=== PATIENT | male | born 1975 | race Hispanic/Latino ===

== ENCOUNTER 2019-11-27 14:04 | Inpatient (IN) | payer BC, OTHER ==
[~2019-11-27] VITALS: Ht 172.7 cm; Wt 89.8 kg
[~2019-11-27 14:04] MED LIST: ASPIRIN ENTERI325 MG PO; FLAGYL250 MG PO; LEVAQUIN500 MG PO; METFORMIN HCL500 MG PO; PANTOPRAZOLE SO40 MG PO; PRAVASTATIN SOD20 MG PO; ZOFRAN4 MG/5 ML PO
--- OUTSIDE RECORDS SUMMARY | 2019-11-27 14:10 | XMS REPORT ---
Author Author [facility] Address [address] [place] [address] Phone Unavailable Care Team Providers Care Pharmacy Laboratory Technician Name Role Phone Unavailable Unavailable Problems This patient has no known problems. Allergies, Adverse Reactions, Alerts This patient has no known allergies or adverse reactions. Medications This patient has no known medications. Procedures This patient has no known procedures. Encounters Start Date/Time End Date/Time Encounter Type Admission Type [facility] Care Department Encounter ID Source 2019-11-23 23:41:00 2019-11-23 23:41:00 Emergency E MHNE [facility]NE [id number] [facility]NE Results This patient has no known results.
--- NOTE | 2019-11-27 14:29 | NUR ---
no answer. not in lobby
[2019-11-27] MEDS ORDERED: AZITHROMYCIN 500MG/NS 250 ML 250 ML IV ONE (15:30)
--- NOTE | 2019-11-27 15:34 | Emergency Department Note ---
History of Present Illnes History of Present Illness Chief Complaint: General Medicine Complaints History of Present Illness This is a 44 year old male . Chief Complaint Comment sob. states covid testing friday at [facility], thinks it was negative, dx with pneumonia. aaox4. ambulatory. no acute distress noted. 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 Any updates have been documented here. (GISEL NARAYAN NP) Past Medical History Recent Fever: No Clinical Suspicion of Infectio: No New/Unexplained Change in Ment: No Other Medical History: DIVERTICULOSIS DIVERTICULITIS pnuemonia Past Surgical History: Colon Resection Other Surgery: Some of Colon removed for Diverticulitis. (GISEL NARAYAN NP) Social History Smoking Cessation: Never Smoker Alcohol Use: None Any Illegal Drug Use: No TB Exposure/Symptoms: No Physically hurt or threatened: No (GISEL NARAYAN NP) Family History Family history of heart diseas: No (GISEL NARAYAN NP) Other Last Tetanus: [place] Any Pre-Existing Lines (PICC,: No (GISEL NARAYAN NP) Review of Systems Review of Systems Constitutional: chills, fever, malaise, weakness Cardiovascular: chest pain Respiratory: cough, pain with cough, dyspnea, dyspnea on exertion Review of other systems All other systems reviewed and negative. (GISEL NARAYAN NP) Physical Exam Related Data Allergies: Coded Allergies: No Known Allergies (Unverified , 04/20/15) Triage Vital Signs Vital Signs Date Time Temp Pulse Resp B/P (MAP) Pulse Ox O2 Delivery O2 Flow Rate FiO2 11/27/19 14:14 98.4 73 16 122/87 97 Vital signs reviewed: Yes (GISEL NARAYAN NP) Physical Exam CONSTITUTIONAL Constitutional: well-developed, well-nourished HENT HENT: normocephalic, atraumatic, oropharynx clear/moist, nose normal HENT L/R: left ext ear normal, right ext ear normal EYES Eyes: PERRL, conjunctivae normal NECK Neck: ROM normal PULMONARY Pulmonary: effort normal, breath sounds normal; respiratory distress CARDIOVASCULAR Cardiovascular: regular rhythm, heart sounds normal, capillary refill normal, normal rate, other (c/o cp ); LLE edema, RLE edema GASTROINTESTINAL Abdominal: soft, nontender, bowel sounds normal GENITOURINARY Genitourinary: exam deferred SKIN Skin: warm, dry MUSCULOSKELETAL Musculoskeletal: ROM normal NEUROLOGICAL Neurological: alert, oriented x 3, no gross motor or sensory deficits PSYCHOLOGICAL Psychological: mood/affect normal, judgement normal (GISEL NARAYAN NP) Results Laboratory Laboratory Laboratory Tests Test 11/27/19 16:28 11/27/19 16:08 11/27/19 15:00 White Blood Count 4.19 x10e3/uL (4.8-10.8) Red Blood Count 5.31 x10e6/uL (4.3-5.7) Hemoglobin 16.2 g/dL (14.0-18.0) Hematocrit 48.7 % (38.2-49.6) Mean Corpuscular Volume 91.7 fL (81-99) Mean Corpuscular Hemoglobin 30.5 pg (28-32) Mean Corpuscular Hemoglobin Concent 33.3 g/dL (31-35) Red Cell Distribution Width 13.9 % (11.7-14.4) Platelet Count 162 x10e3/uL (140-360) Neutrophils (%) (Auto) 63.3 % (38.7-80.0) Lymphocytes (%) (Auto) 26.0 % (18.0-39.1) Monocytes (%) (Auto) 10.3 % (4.4-11.3) Eosinophils (%) (Auto) 0.0 % (0.0-6.0) Basophils (%) (Auto) 0.2 % (0.0-1.0) Neutrophils # (Auto) 2.7 (2.1-6.9) Lymphocytes # (Auto) 1.1 (1.0-3.2) Monocytes # (Auto) 0.4 (0.2-0.8) Eosinophils # (Auto) 0.0 (0.0-0.4) Basophils # (Auto) 0.0 (0.0-0.1) Absolute Immature Granulocyte (auto 0.01 x10e3/uL (0-0.1) Sodium Level 139 mmol/L (136-145) Potassium Level 4.1 mmol/L (3.5-5.1) Chloride Level 102 mmol/L (98-107) Carbon Dioxide Level 24 mmol/L (22-29) Anion Gap 17.1 mmol/L (8-16) Blood Urea Nitrogen 12 mg/dL (7-26) Creatinine 0.90 mg/dL (0.72-1.25) Estimat Glomerular Filtration Rate > 60 ML/MIN (60-) BUN/Creatinine Ratio 13 (6-25) Glucose Level 185 mg/dL (74-118) Lactic Acid Level 1.4 mmol/L (0.5-2.0) Calcium Level 9.8 mg/dL (8.4-10.2) Total Bilirubin 0.4 mg/dL (0.2-1.2) Aspartate Amino Transf (AST/SGOT) 44 IU/L (5-34) Alanine Aminotransferase (ALT/SGPT) 68 IU/L (0-55) Alkaline Phosphatase 78 IU/L (40-150) Creatine Kinase 52 IU/L (30-200) Creatine Kinase MB 0.40 ng/mL (0-5.0) Troponin I 0.008 ng/mL (0-0.300) B-Type Natriuretic Peptide < 10.0 pg/mL (0-100) Total Protein 7.9 g/dL (6.5-8.1) Albumin 3.9 g/dL (3.5-5.0) Globulin 4.0 g/dL (2.3-3.5) Albumin/Globulin Ratio 1.0 (0.8-2.0) Influenza Virus Types A,B Antigen Negative (NEGATIVE) Group A Streptococcus Screen Negative (NEGATIVE) Urine Color Yellow (YELLOW) Urine Clarity Clear (CLEAR) Urine pH 6 (5 - 7) Urine Specific [place] >=1.030 (1.010-1.025) Urine Protein 1+ (NEGATIVE) Urine Glucose (UA) 2+ (NEGATIVE) Urine Ketones 2+ (NEGATIVE) Urine Blood Trace (NEGATIVE) Urine Nitrite Negative (NEGATIVE) Urine Bilirubin Negative (NEGATIVE) Urine Urobilinogen 0.2 mg/dL (0.2 - 1) Urine Leukocyte Esterase Negative (NEGATIVE) Urine RBC 6-10 /HPF (0-5) Urine WBC 6-10 /HPF (0-5) Urine Epithelial Cells Few /LPF (NONE) Urine Bacteria Rare /HPF (NONE) Lab results reviewed: Yes (GISEL NARAYAN NP) Procedures 12 Lead ECG Interpretation Video Game Repair Technician: Interpreted by ED physician (tay) Date: November 27, 2019 Time: 19:07 Prior LOG CHAIN WORKER tracings: reviewed Rhythm: sinus rhythm Rate: normal BPM: 97 QRS axis: left (GISEL NARAYAN NP) Critical Care Time Subsequent provider I assumed direction of critical care for this patient from another provider of my specialty. (GISEL NARAYAN NP) Assessment & Plan Reassessment Reassessment time: 15:31 Reassessment 44y m presented to ed c/o cp sob cough x 5 days - seen at [facility] 3 days ago neg covid - Dr Montes in eval pt status - lab ekg ct chest - medicated w/ azithromax rocephin blood cultures lactic ordered in triage pt medicated w/ rocephin azithromax no bacterial source for pneumonia found Dr Montes discussed pt presentation plan of care w/ Dr Guerra (GISEL NARAYAN NP) Assessment & Plan Final Impression: (1) DYSPNEA, UNSPECIFIED (2) PNEUMONIA, UNSPECIFIED ORGANISM Assessment & Plan discussed lab ct results plan of care and plan for admit Dr Guerra spoke w/ Dr Menendez will admit (GISEL NARAYAN NP) Assessment & Plan 5 all right the ED with continued complaints of cough and shortness of breath. Patient febrile ER, CT scan ordered by Dr. Montes given concerns of possible pulmonary embolus. CT concerning for viral pneumonia. There is a high suspicion of [place] 19, given leukopenia and CT findings of multilobar bilateral pneumonia. Patient was admitted, covered swabs sent, no concerns of bacterial source of infection at time of admission. Patient presented during the COVID-19 virus pandemic and has a clinical picture consistent with a COVID-19 source for sepsis. Thus, patient was treated for suspected viral sepsis rather than bacterial sepsis. Given the potential for ARDS and present suggestions of early data from COVID treatment in other areas, fluids were given judiciously and the bacterial sepsis guidelines were deviated from. For consideration of other sources, blood cultures, antibiotics and lactic acid will potentially be ordered. Will continue to monitor blood pressure and ad just fluid resuscitation accordingly." (JOSE R GUERRA DO) Depart Disposition: ADMITTED Last Vital Signs Date Time Temp Pulse Resp B/P (MAP) Pulse Ox O2 Delivery O2 Flow Rate FiO2 11/27/19 14:14 98.4 73 16 122/87 97 (GISEL NARAYAN NP) Home Meds Active Scripts Ondansetron Hcl (ZOFRAN) 4 Mg/5 Ml Solution, 4 MG PO Q4HR PRN for NAUSEA, #30 1 Refill Prov:NEERU DOWLING MD 11/14/15 Aspirin (ASPIRIN ENTERIC COATED) 325 Mg Tabec, 81 MG PO DAILY, #30 TAB 2 Refills Prov:NEERU DOWLING MD 11/14/15 Pravastatin Sodium (PRAVASTATIN SODIUM) 20 Mg Tablet, 20 MG PO HS, #30 2 Refills Prov:NEERU DOWLING MD 11/14/15 Metformin Hcl (METFORMIN HCL) 500 Mg Tablet, 500 MG PO BID, #60 TAB 2 Refills Prov:NEERU DOWLING MD 11/14/15 Reported Medications Gabapentin (GABAPENTIN) 300 Mg Capsule, 300 MG PO BID, #60 CAP 11/27/19 Glimepiride (GLIMEPIRIDE) 2 Mg Tablet, 4 MG PO DAILY, TAB 11/27/19 Metformin Hcl (METFORMIN HCL) 500 Mg Tablet, 1000 MG PO BID, #60 TAB 11/27/19 GISEL NARAYAN NP November 27, 2019 15:34 JOSE R GUERRA DO November 27, 2019 22:55
[2019-11-27 16:23] LABS: CLARITY,URINE CLEAR (CLEAR); COLOR,URINE YELLOW (YELLOW)
[2019-11-27 16:24] LABS: BILIRUBIN,URINE NEGATIVE (NEGATIVE); KETONES,URINE 2+ (NEGATIVE); LEUKOCYTE ESTERASE ,URINE NEGATIVE (NEGATIVE); NITRITE,URINE NEGATIVE (NEGATIVE); PROTEIN,URINE DIPSTICK 1+ (NEGATIVE); URINE UROBILINOGEN 0.2 mg/dL (0.2 - 1)
[2019-11-27 16:29] LABS: BACTERIA,URINE RARE /HPF; EPITHELIAL CELLS,URINE FEW /LPF
[2019-11-27 16:53] LABS: BASOPHILS % 0.2 % (0.0-1.0); HEMATOCRIT 48.7 % (38.2-49.6); HEMOGLOBIN 16.2 g/dL (14.0-18.0); LYMPHOCYTES # (AUTO) 1.1 (1.0-3.2); MEAN CORPUSCULAR HEMOGLOBIN 30.5 pg (28-32); MEAN CORPUSCULAR HGB CONC 33.3 g/dL (31-35); MEAN CORPUSCULAR VOLUME 91.7 fL (81-99); MONOCYTES # (AUTO) 0.4 (0.2-0.8); MONOCYTES % 10.3 % (4.4-11.3); NEUTROPHILS # (AUTO) 2.7 (2.1-6.9); NEUTROPHILS % 63.3 % (38.7-80.0); PLATELET COUNT 162 x10e3/uL (140-360); RED BLOOD COUNT 5.31 x10e6/uL (4.3-5.7); RED CELL DISTRIBUTION WIDTH 13.9 % (11.7-14.4)
[2019-11-27] MEDS ORDERED: CEFTRIAXONE SOD 1 GM VIAL IV NR (17:00)
[2019-11-27] MEDS ORDERED: SODIUM CHLORIDE 0.9% 50ML 50 ML ONE ×2 (17:12→19:31)
[2019-11-27 17:25] LABS: INFLUENZAE A&B ANTIGEN (RAPID) NEGATIVE (NEGATIVE); STREPTOCOCCUS GRP A ANTIGEN NEGATIVE (NEGATIVE)
[2019-11-27 17:28] LABS: B-TYPE NATRIURETIC PEPTIDE2 < 10.0 pg/mL (0-100)
[2019-11-27 17:56] LABS: ALANINE AMINOTRANSFERASE 68 IU/L (0-55); ALBUMIN 3.9 g/dL (3.5-5.0); ALKALINE PHOSPHATASE 78 IU/L (40-150); ANION GAP 17.1 mmol/L (8-16); BLOOD UREA NITROGEN 12 mg/dL (7-26); BUN/CREATININE RATIO 13 (6-25); CALCIUM 9.8 mg/dL (8.4-10.2); CARBON DIOXIDE 24 mmol/L (22-29); CHLORIDE 102 mmol/L (98-107); CREATINE KINASE 52 IU/L (30-200); EST GLOMERULAR FILTRATION RATE > 60 ML/MIN (60-); GLUCOSE 185 mg/dL (74-118); POTASSIUM 4.1 mmol/L (3.5-5.1); SODIUM 139 mmol/L (136-145)
[2019-11-27] MEDS ORDERED: KETOROLAC TROMETHAMINE 30 MG/ML VIAL IV NR (18:45)
[2019-11-27] MEDS ORDERED: IOPAMIDOL 370 MG/ML 200 ML INFUS..BTL INJ ONE (19:31)
--- NOTE | 2019-11-27 20:17 | Diagnostic Imaging Report ---
EXAM: CT Chest WITH contrast (PE protocol) 11/27/2019 7:33 PM INDICATION: Short of breath, fever COMPARISON: None TECHNIQUE: Chest was scanned utilizing a multidetector helical scanner from the lung apex through the level of the diaphragm after administration of IV contrast. Thin section reconstructions were obtained with special concentration on the pulmonary arteries. Coronal and sagittal reformations were obtained. Pulmonary embolism protocol was performed. IV CONTRAST: 100 mL of Isovue 370 COMPLICATIONS: None RADIATION DOSE: Total DLP: 492 mGy*cm Estimated effective dose: (DLP x 0.014 x size factor) mSv CTDIvol has been reviewed. It is below the limits set by the Radiation Protocol Committee (RPC). Dose modulation, iterative reconstruction, and/or weight based adjustment of the mA/kV was utilized to reduce the radiation dose to as low as reasonably achievable. FINDINGS: LINES/ TUBES: None. LUNGS AND AIRWAYS: No pulmonary arterial filling defect. Groundglass and consolidative opacity in the right lower lobe, scattered focal groundglass opacities in the bilateral upper and left lower lobes. Airways are normal. PLEURA: The pleural spaces are clear. HEART AND MEDIASTINUM: The thyroid gland is normal. No mediastinal, hilar or axillary lymphadenopathy. The heart is normal in size. There is no pericardial effusion. UPPER ABDOMEN: Hepatomegaly with hepatic steatosis. Unremarkable. BONES: The visualized bony thorax is within normal limits. SOFT TISSUES: Unremarkable. IMPRESSION: Multifocal pneumonia, mostly in the right lower lobe. Correlate for viral pneumonia. Hepatomegaly with hepatic steatosis. Signed by: Tom Antony DO on 11/27/2019 8:14 PM
[2019-11-27] MEDS ORDERED: GLIMEPIRIDE2 MG PO (21:48)
[2019-11-27] MEDS ORDERED: METFORMIN HCL500 MG PO (21:48)
[2019-11-27] MEDS ORDERED: GABAPENTIN300 MG PO (21:48)
--- OUTSIDE RECORDS SUMMARY | 2019-11-27 21:49 | XMS REPORT ---
Author Author [facility] t Organization [facility] Address [address] [place] [address] Phone Unavailable Care Team Providers Care Behavioral Health Worker Name Role Phone MARYJANE Jacqueline ANABELL Attphys Unavailable Problems This patient has no known problems. Allergies, Adverse Reactions, Alerts This patient has no known allergies or adverse reactions. Medications This patient has no known medications. Procedures This patient has no known procedures. Encounters Start Date/Time End Date/Time Encounter Type [facility] Encounter ID Source 2019-11-23 23:41:00 2019-11-23 23:41:00 Emergency E MHNE MHNE [id number] MHNE Results Test Description Test Time Test Comments Results Result Comments Source CT CHEST W 2019-11-27 20:09:00 [facility] [address] [place] [id number] Patient Name: CL AGUAYO MR #: [id number] : 1975 Age/Sex: 44/M Req #: [id number] Adm Physician: Ordered by: GISEL NARAYAN BOILER HELPER Report #: [id number] Location: ER Room/Bed: Procedure: [id number] CT/CT CHEST W Exam Date: 11/27/19 Exam Time: 1929 REPORT STATUS: Signed EXAM: CT Chest WITH contrast (PE protocol) 11/27/2019 7:33 PM INDICATION: Short of breath, fever COMPARISON: None TECHNIQUE: Chest was scanned utilizing a multidetector helical scanner from the lung apex through the level of the diaphragm after administration of IV contrast. Thin section reconstructions were obtained with special concentration on the pulmonary arteries. Coronal and sagittal reformations were obtained. Pulmonary embolism protocol was performed. IV CONTRAST: 100 mL of Isovue 370 COMPLICATIONS: None RADIATION DOSE: Total DLP: 492 mGy*cm Estimated effective dose: (DLP x 0.014 x size factor) mSv CTDIvol has been reviewed. It is below the limits set by the Radiation Protocol Committee (RPC). Dose modulation, iterative reconstruction, and/or weight based adjustment of the mA/kV was utilized to reduce the radiation dose to as low as reasonably achievable. FINDINGS: LINES/ TUBES: None. LUNGS AND AIRWAYS: No pulmonary arterial filling defect. Groundglass and consolidative opacity in the right lower lobe, scattered focal groundglass opacities in the bilateral upper and left lower lobes. Airways are normal. PLEURA: The pleural spaces are clear. HEART AND MEDIASTINUM: The thyroid gland is normal. No mediastinal, hilar or axillary lymphadenopathy. The heart is normal in size. There is no pericardial effusion. UPPER ABDOMEN: Hepatomegaly with hepatic steatosis. Unremarkable. BONES: The visualized bony thorax is within normal limits. SOFT TISSUES: Unremarkable. IMPRESSION: Multifocal pneumonia, mostly in the right lower lobe. Correlate for viral pneumonia. Hepatomegaly with hepatic steatosis. Signed by: Tom Antony DO on 11/27/2019 8:14 PM Dictated By: TOM ANTONY DO 13 Transcribed By: YAMILET on 11/27/192013 COPY TO: GISEL NARAYAN NP
[2019-11-27] MEDS: CEFTRIAXONE SOD 1 GRAM/0.9% SOD CHL 50ML BAG IV SCH (21:52)
[2019-11-27] MEDS: AZITHROMYCIN 500MG/SOD CHL 0.9% 250ML BAG IV SCH (21:53)
[2019-11-27] MEDS ORDERED: ACETAMINOPHEN 325 MG TAB PO ONE (22:30)
--- NOTE | 2019-11-27 23:26 | NUR ---
REPORTED OFF TO EKTA MCFADDEN
[2019-11-28] MEDS ORDERED: ACETAMINOPHEN/CODEINE 300MG - 30MG TAB PO ONE (03:15)
--- NOTE | 2019-11-28 07:06 | NUR ---
REPORT GIVEN TO KERRI DASH
[2019-11-28 07:30] LABS: CREATINE KINASE MB 0.2 ng/mL (0-5.0)
--- NOTE | 2019-11-28 08:35 | NUR ---
Attempted to call attending MD for orders. Patient complaining of nausea and back pain. Unable to get in contact with attending MD.
--- NOTE | 2019-11-28 09:44 | NUR ---
Attempted to call Dr. Menendez again for orders for patient, but unable to get in contact with him. Will attempt to call at a later time.
--- NOTE | 2019-11-28 10:00 | NUR ---
spoke with Dr. Menendez in order to get orders for patients. Explained to him that patient was complaining of nausea and back pain. Was given order from Dr. Menendez for Zofran 4 mg prn IV q6 prn and [place] 5 mg po q6 prn, was also told that he would be in today to assess patient.
[2019-11-28] MEDS: HYDROCODONE/APAP 5MG-325MG TAB PO PRN ×2 (11:00→17:59)
[2019-11-28] MEDS: ONDANSETRON HCL INJ 2MG/ML 2ML 2 MG/ML VIAL IV PRN (11:02)
--- NOTE | 2019-11-28 12:20 | NUR ---
Spoke with patient and his regarding when he would be moved to an inpatient room. Informed them that the hospital is at capacity at the moment, but he is still receiving the same level of care he would receive if he was in an in patient room. Patient stated that he was upset because he has been in the emergency room for over 24 hours. Apologized to patient and informed him whenever in patient bed became available that he would be transferred.
[2019-11-28] MEDS ORDERED: DEXTROSE 50% SYRINGE 50 ML IV PRN (13:00)
[2019-11-28] MEDS: SODIUM CHLORIDE 0.9% 1000ML 1,000 ML IV SCH (14:57)
[2019-11-28 15:12] LABS: BASOPHILS % 0.2 % (0.0-1.0); HEMATOCRIT 46.4 % (38.2-49.6); HEMOGLOBIN 15.3 g/dL (14.0-18.0); LYMPHOCYTES # (AUTO) 1.2 (1.0-3.2); LYMPHOCYTES % 24.8 % (18.0-39.1); MONOCYTES # (AUTO) 0.3 (0.2-0.8); MONOCYTES % 6.9 % (4.4-11.3); NEUTROPHILS # (AUTO) 3.4 (2.1-6.9); NEUTROPHILS % 67.9 % (38.7-80.0); PLATELET COUNT 161 x10e3/uL (140-360); RED CELL DISTRIBUTION WIDTH 13.9 % (11.7-14.4)
[2019-11-28] MEDS: ACETAMINOPHEN 325 MG TAB PO PRN ×2 (15:17→20:56)
[2019-11-28 15:32] LABS: CREATINE KINASE 34 IU/L (30-200)
--- NOTE | 2019-11-28 15:55 | NUR ---
consult [id number]
[2019-11-28 16:00] VITALS: BP 130/82
[2019-11-28 16:31] LABS: ANION GAP 19.4 mmol/L (8-16); BLOOD UREA NITROGEN 14 mg/dL (7-26); BUN/CREATININE RATIO 18 (6-25); CALCIUM 8.9 mg/dL (8.4-10.2); CARBON DIOXIDE 21 mmol/L (22-29); CHLORIDE 101 mmol/L (98-107); CREATININE, SERUM 0.78 mg/dL (0.72-1.25); EST GLOMERULAR FILTRATION RATE > 60 ML/MIN (60-); GLUCOSE 203 mg/dL (74-118); POTASSIUM 3.4 mmol/L (3.5-5.1); SODIUM 138 mmol/L (136-145)
--- NOTE | 2019-11-28 16:40 | NUR ---
PT TO THE FLOOR BY WHEELCHAIR. VITALS WNL. PT DENIES NEEDS AT THIS TIME.
[2019-11-28 17:48] VITALS: BP 122/87
[2019-11-28] MEDS: GABAPENTIN 300 MG CAP PO SCH (17:59)
[2019-11-28] MEDS: ENOXAPARIN SOD INJ 40 MG/0.4 ML SYR SC SCH (17:59)
--- NOTE | 2019-11-28 19:44 | History and Physical ---
CHIEF COMPLAINT: Fever and myalgias. HISTORY OF PRESENT ILLNESS: This is a 44-year-old male, history of type 2 diabetes and peripheral neuropathy, who presents to the ED with complaints of fever ongoing for the last 7 to 10 days. The patient reports that he was recently seen at an ER, told that had underlying pneumonia and was treated accordingly with antibiotics with amoxicillin and doxycycline according to the family and was discharged to home. He states after that he was not really doing well, still complained of having high-grade fever, but no reports of any cough or congestion or any recent travel. No diarrhea or any abdominal pain. No chest pain. The patient reports he continued to have myalgias and fever and came into the ED last night for further evaluation and management. While here, the patient has been found to be afebrile. White count was found to be normal. His labs were reviewed. Imaging studies consistent with a possible pneumonia and possibly viral pneumonia as well. REVIEW OF SYSTEMS: Pertinent positives fever, myalgias, and generalized weakness. The rest of 14-point review of systems are reviewed with the patient and are negative. ALLERGIES: NO KNOWN DRUG ALLERGIES. MEDICATIONS: Aspirin, gabapentin, pravastatin, glimepiride, metformin, and Zofran. PAST MEDICAL HISTORY: Type 2 diabetes, morbidly obese, and hyperlipidemia. PAST SURGICAL HISTORY: Reports none. FAMILY HISTORY: Hypertension and diabetes. SOCIAL HISTORY: No drugs, no alcohol, and does not smoke. Good social support. He works. PHYSICAL EXAMINATION: VITAL SIGNS: Temperature is 98.9, but T-max 100.1, pulse 99, respiratory rate 18, blood pressure 108/96, pulse ox has 99% on room air. GENERAL: In no acute distress, alert and oriented PULMONARY: Clear to auscultation bilaterally. No wheezing, rales, or rhonchi. No crackles appreciated. CARDIOVASCULAR: Positive S1, S2. No murmurs, rubs, or gallops. ABDOMEN: Soft, nondistended, and nontender to palpation. Bowel sounds present. MUSCULOSKELETAL: Strength is 5/5 throughout. No evidence of any muscle deficits on examination. SKIN: Intact. Warm to touch. Good cap refill. PSYCHIATRIC: Normal affect and mood. EXTREMITIES: No edema. Good range of motion throughout. LABORATORY DATA: Show white count 4.1, hemoglobin 16, hematocrit 48.7, platelets of 162,000. Chemistry; sodium 139, potassium 4.1, chloride 102, bicarb 24, anion gap of 17, BUN 12, creatinine 0.9, glucose is 185. Lactic acid 1.4, calcium 9.8, total bilirubin was 0.4, AST 44, ALT 68, alkaline phosphatase 78. CK 52, troponins 0.008 and then 0.003. BNP less than 10. Total protein was 7.9, albumin 3.9. Urinalysis; WBC 6-10, RBC 6-10, negative nitrite, negative leukocyte esterase. Serology; coronavirus PCR negative, flu was negative, and group A strep was negative. MICROBIOLOGY: Throat cultures, no growth. Blood cultures are pending. IMAGING STUDIES: CT of the chest shows multifocal pneumonia mostly in the right lower lobe. Correlate for viral pneumonia as well. Hepatomegaly with hepatic steatosis. IMPRESSION: 1. Community-acquired pneumonia, possible also viral pneumonia. 2. Fever with generalized weakness and fatigue likely secondary to #1. 3. Type 2 diabetes. 4. Hyperlipidemia. PLAN: At this time, the patient is afebrile and has been afebrile while here in the hospital stay. He clinically does not have any cough or congestion and his dinh virus PCR was found to be negative. Imaging studies consistent with a pneumonia. He is on IV Rocephin and azithromycin. He reports that he still has some myalgias noted and his CK was found to be normal. His influenza was also found to be negative. We will continue with IV antibiotics, IV fluids and pain control. I will go ahead and get an ID consultation as well. Clinically, he looks very well, but states that he is not ready for discharge at this time. We will go ahead and put him on a regular diet, Lovenox for DVT prophylaxis. Monitor overnight. Restart all his home medications. MD PETAR Lopez/RAMÓN /[id number]
[2019-11-28 20:07] VITALS: BP 128/82
--- NOTE | 2019-11-28 20:19 | Consultation ---
DATE OF CONSULTATION: REASON FOR CONSULTATION: Fever and chills. HISTORY OF PRESENT ILLNESS: Mr. Georges is a 44-year-old male, denies past medical history. He comes in with four days history of fever, chills, not feeling well, nausea, and some abdominal discomfort. [facility]. He was diagnosed with pneumonia. He was discharged home. He is coming back here with worsening condition. The patient is being admitted. PAST MEDICAL HISTORY: Denies. PAST SURGICAL HISTORY: Denies. ALLERGIES: NKA. SOCIAL HISTORY: There is no smoking, drug abuse, or alcohol abuse. PHYSICAL EXAMINATION: GENERAL: Currently alert, oriented, does not seem to be in acute distress. VITAL SIGNS: Stable, currently afebrile. His T-max 100.1, heart rate is 100, respirations 20. HEENT: He is not icteric. NECK: Supple. CHEST: Clear. HEART: S1, S2. ABDOMEN: Soft. IMPRESSION: 1. Sepsis on admission. 2. Pneumonia, community acquired, concerned about bacteria. PLAN: I agree with Rocephin and azithromycin. His COVID testing came back negative here again, but we will keep him on droplet isolation. We will see if we can get IgM testing. Continue supportive care. Obtain HIV testing. We will follow with you. MD NICK Fernandez/RAMÓN /[id number]
--- NOTE | 2019-11-28 20:27 | NUR ---
RECEIVED PT IN BED AOX3 .RESPIRATIONS ARE EVEN AND UNLABORED .IV LEFT AC 20G NS RUNNING 100CC/HR CALL LIGHT WITH IN REACH .CONTINUE TO MONITOR
[2019-11-28] MEDS: CEFTRIAXONE SOD 1 GRAM/0.9% SOD CHL 50ML BAG IV SCH (20:55)
[2019-11-28] MEDS: AZITHROMYCIN 500MG/SOD CHL 0.9% 250ML BAG IV SCH (20:55)
[2019-11-28] MEDS: PRAVASTATIN 20 MG TAB PO SCH (21:00)
[2019-11-28] MEDS ORDERED: MELATONIN 5 MG TABLET PO PRN (21:00)
[2019-11-29] VITALS (8 sets, daily range): BP systolic 108–134; BP diastolic 74–85
[2019-11-29] MEDS: HYDROCODONE/APAP 5MG-325MG TAB PO PRN ×4 (00:50→20:26)
[2019-11-29] MEDS: SODIUM CHLORIDE 0.9% 1000ML 1,000 ML IV SCH ×4 (01:43→20:00)
[2019-11-29] MEDS: ACETAMINOPHEN 325 MG TAB PO PRN ×3 (03:00→18:46)
[2019-11-29 05:53] LABS: BASOPHILS % 0.1 % (0.0-1.0); HEMATOCRIT 44.8 % (38.2-49.6); HEMOGLOBIN 14.8 g/dL (14.0-18.0); LYMPHOCYTES % 14.3 % (18.0-39.1); MEAN CORPUSCULAR VOLUME 90.9 fL (81-99); MONOCYTES # (AUTO) 0.4 (0.2-0.8); MONOCYTES % 5.5 % (4.4-11.3); NEUTROPHILS # (AUTO) 5.7 (2.1-6.9); NEUTROPHILS % 79.7 % (38.7-80.0); PLATELET COUNT 147 x10e3/uL (140-360); RED BLOOD COUNT 4.93 x10e6/uL (4.3-5.7); RED CELL DISTRIBUTION WIDTH 13.8 % (11.7-14.4)
[2019-11-29 06:18] LABS: ANION GAP 15.2 mmol/L (8-16); BLOOD UREA NITROGEN 12 mg/dL (7-26); BUN/CREATININE RATIO 17 (6-25); CARBON DIOXIDE 21 mmol/L (22-29); CHLORIDE 102 mmol/L (98-107); CREATININE, SERUM 0.72 mg/dL (0.72-1.25); EST GLOMERULAR FILTRATION RATE > 60 ML/MIN (60-); GLUCOSE 187 mg/dL (74-118); POTASSIUM 3.2 mmol/L (3.5-5.1); SODIUM 135 mmol/L (136-145)
--- NOTE | 2019-11-29 06:29 | NUR ---
PT HAD FEVER AND GIVEN TYLENOL AND C/O PAIN MEDICATED WITH ORDERED PAIN MEDICATION .CALL LIGHT WITH IN REACH .CONTINUE TO MONITOR
--- NOTE | 2019-11-29 06:56 | NUR ---
BEDSIDE REPORT GIVEN TO THE ONCOMING NURSE
[2019-11-29] MEDS: GABAPENTIN 300 MG CAP PO SCH ×2 (08:22→17:43)
[2019-11-29] MEDS: ASPIRIN 325 MG TAB EC PO SCH (08:22)
--- NOTE | 2019-11-29 12:37 | Progress Note ---
DATE: SUBJECTIVE: The patient is a pleasant 44-year-old [place] gentleman. REVIEW OF SYSTEMS: He complains of general pain, especially on his back muscles and fever. He has poor appetite. He started to have diarrhea and not feeling well in general. OBJECTIVE: VITAL SIGNS: Current temperature is 98.6 with a pulse 94, respirations 19, blood pressure 125/83, his maximum temperature for past 24 hours is 102, more than one occasion. GENERAL: Thin looking, seems achy with pain all over, but alert and oriented, responds appropriately. I think he is alert and oriented x3. CV: S1-S2. CHEST: Equal expansion. Decreased breath sounds bilaterally. The patient is on room air. ABDOMEN: Soft and nontender. HEENT: Moist. No pallor. No JVD. EXTREMITIES: Moves all, but very achy, slow movement. I tapped his back and palpated his back. There is no focal point of tenderness. He is when I feel the muscles, especially on both sides of his lower part of the back. MEDICATIONS: Medication list reviewed as far as Infectious Disease point of view, the patient has Zithromax and Rocephin. LABORATORY STUDIES: White count of 7.21, hemoglobin 14.8, platelets 147. Sodium 135, potassium 3.2, creatinine 0.72. The patient has a ferritin level of 1082.35, AST 44, slightly elevated, ALT 68, elevated, alkaline phosphatase 78, which is within normal limit. SEROLOGY: Coronavirus PCR not detected on 11/26 in 11/27. Influenza type A and B antigen and group A strep screen negative on 11/26. MICROBIOLOGY: Blood culture 11/26 negative. So far throat culture on 11/26 pending. PATHOLOGY: No new pathology available. RADIOLOGY STUDIES: CT of chest suggested multifocal pneumonia, mostly in the right lower lobe with concerns for viral pneumonia, also with hepatomegaly with hepatic steatosis. ASSESSMENT AND PLAN: There is a 44-year-old gentleman, admitted with a fever. He has been having fever for about 7-10 days. He was treated with oral antibiotics as an outpatient through outside ER with no resolution in his medical condition. Remains with fever. Workup as mentioned above. The patient remains on Rocephin and Zithromax. We continue with the current antibiotics and will follow with the labs. His lactic acid is 1.4. Cultures negative with the throat culture pending. Please refer to chart for more information. Discussed with Dr. Chakraborty in details. Dictated by Gabino Ortez) VIC Lujan Rupinder Chakraborty MD /RAMÓN /[id number]
[2019-11-29] MEDS ORDERED: DEXTROSE 50% SYRINGE 50 ML IV PRN (14:15)
[2019-11-29] MEDS: INSULIN REGULAR, HUMAN 100 UNIT/1 ML 3ML VIAL SQ SCH ×2 (17:43→20:26)
[2019-11-29] MEDS: ENOXAPARIN SOD INJ 40 MG/0.4 ML SYR SC SCH (17:43)
[2019-11-29] MEDS: CEFTRIAXONE SOD 1 GRAM/0.9% SOD CHL 50ML BAG IV SCH (20:26)
[2019-11-29] MEDS: PRAVASTATIN 20 MG TAB PO SCH (20:26)
[2019-11-29] MEDS: AZITHROMYCIN 250 MG TAB PO SCH (20:26)
[2019-11-29] MEDS ORDERED: POTASSIUM CHLORIDE 20 MEQ TAB CR PO STA (22:31)
[2019-11-30] VITALS (9 sets, daily range): BP systolic 116–135; BP diastolic 65–82
--- NOTE | 2019-11-30 01:52 | Progress Note ---
DATE: 11/29/2019 Medicine Progress Note SUBJECTIVE: The patient was doing well today. He is actually sitting in a chair today. He did have a temperature of 102 early this morning. His current temp during my evaluation was 99.9. He was doing well otherwise. He was tolerating his diet well. PHYSICAL EXAMINATION: VITAL SIGNS: Temperature was 99.9, T-max 102. His pulse is 106, respiratory rate is 18, blood pressure 121/81. He is saturating 98% on room air. GENERAL: Not in acute distress. Alert and oriented x3. Cooperative on examination. HEENT: Head is normocephalic, atraumatic. Eyes, pupils equal, round, and reactive to light bilaterally. Extraocular movements intact bilaterally. Throat, no evidence of erythema or exudates in the posterior pharynx. Has poor dentition. NECK: Supple. Good range of motion. PULMONARY: Clear to auscultation bilaterally. No wheezing, rales, or rhonchi. No crackles appreciated. CARDIOVASCULAR: Positive S1, S2. No murmurs, rubs, or gallops. ABDOMEN: Soft, nondistended, and nontender on palpation. Bowel sounds present. MUSCULOSKELETAL: Strength is 5/5 throughout. No evidence of any muscle deficits on examination. No weakness appreciated. NEUROLOGIC: Cranial nerves II through XI1 grossly intact. No evidence of any neurological deficits on exam. SKIN: Intact. Warm to touch. Good cap refill. PSYCHIATRIC: Normal affect and mood. EXTREMITIES: No edema. Good range of motion throughout. LABORATORY DATA: White count 7.2, hemoglobin 14.0, hematocrit 45, platelets of 147. Chemistry; sodium was 135, potassium 3.2, chloride 102, bicarbonate is 21, anion gap of 15, BUN is 12, creatinine 0.72, glucose is 187, calcium is 8, and albumin 3.9. SEROLOGY: Coronavirus x2 was negative. Influenza negative. Group A strep is negative. Mycoplasma pneumonia and Legionella has been ordered. Urinalysis negative. MICROBIOLOGY: Blood cultures no growth to date. Throat cultures were negative. IMAGING STUDIES: Nothing new. IMPRESSION: 1. Community-acquired pneumonia, possible viral etiology with viral pneumonia. 2. Fever with generalized weakness and fatigue, etiology of the fever could be viral in nature. 3. Type 2 diabetes. 4. Hyperlipidemia. PLAN: At this time, the patient continues to have fever despite being on antibiotics. He has no white count and his cultures are negative to date. We are still working on trying to figure out the etiology of his fever. Several more serologies have been ordered by ID. Continue with antibiotics for now. Continue with IV fluids as well. Get a.m. labs. Replace electrolytes. Lovenox for DVT prophylaxis. I discussed overall plan of care with the patient at bedside and he verbalized understanding. MD PETAR Lopez/MODL /[id number]
[2019-11-30] MEDS: ONDANSETRON HCL INJ 2MG/ML 2ML 2 MG/ML VIAL IV PRN (02:43)
[2019-11-30] MEDS: ACETAMINOPHEN 325 MG TAB PO PRN ×3 (02:59→23:55)
[2019-11-30] MEDS: SODIUM CHLORIDE 0.9% 1000ML 1,000 ML IV SCH ×2 (03:00→15:23)
[2019-11-30 06:10] LABS: BASOPHILS % 0.1 % (0.0-1.0); HEMATOCRIT 43.9 % (38.2-49.6); HEMOGLOBIN 14.7 g/dL (14.0-18.0); LYMPHOCYTES % 8.7 % (18.0-39.1); MEAN CORPUSCULAR HEMOGLOBIN 30.2 pg (28-32); MEAN CORPUSCULAR HGB CONC 33.5 g/dL (31-35); MEAN CORPUSCULAR VOLUME 90.3 fL (81-99); MONOCYTES # (AUTO) 0.3 (0.2-0.8); MONOCYTES % 2.9 % (4.4-11.3); NEUTROPHILS # (AUTO) 10.4 (2.1-6.9); NEUTROPHILS % 87.6 % (38.7-80.0); PLATELET COUNT 180 x10e3/uL (140-360); RED BLOOD COUNT 4.86 x10e6/uL (4.3-5.7); RED CELL DISTRIBUTION WIDTH 13.8 % (11.7-14.4)
[2019-11-30 06:59] LABS: ALANINE AMINOTRANSFERASE 61 IU/L (0-55); ALBUMIN/GLOBULIN RATIO 0.8 (0.8-2.0); ALKALINE PHOSPHATASE 87 IU/L (40-150); ANION GAP 14.4 mmol/L (8-16); BLOOD UREA NITROGEN 8 mg/dL (7-26); BUN/CREATININE RATIO 12 (6-25); CALCIUM 8.2 mg/dL (8.4-10.2); CARBON DIOXIDE 20 mmol/L (22-29); CHLORIDE 105 mmol/L (98-107); CREATININE, SERUM 0.66 mg/dL (0.72-1.25); EST GLOMERULAR FILTRATION RATE > 60 ML/MIN (60-); GLUCOSE 181 mg/dL (74-118); POTASSIUM 3.4 mmol/L (3.5-5.1); SODIUM 136 mmol/L (136-145)
[2019-11-30 07:01] LABS: LIPASE < 4 U/L (8-78)
[2019-11-30] MEDS: GABAPENTIN 300 MG CAP PO SCH ×2 (08:12→16:38)
[2019-11-30] MEDS: ASPIRIN 325 MG TAB EC PO SCH (08:12)
[2019-11-30] MEDS: INSULIN REGULAR, HUMAN 100 UNIT/1 ML 3ML VIAL SQ SCH ×4 (08:13→22:51)
--- NOTE | 2019-11-30 11:29 | Progress Note ---
DATE: SUBJECTIVE: The patient is seen and evaluated. Available labs and notes reviewed. REVIEW OF SYSTEMS: Shortness of breath has improved. Pain, in general, in the muscles reports that improved. No change in appetite. Remains with poor appetite. Remains weak. Still with fever. Overall, maybe slightly improved since yesterday. No new events. PHYSICAL EXAMINATION: VITAL SIGNS: Temperature currently 98.3 with a max of 101.7 this morning about 3 o'clock, pulse 88, respirations 17, and blood pressure 126/74. GENERAL: Seems to be alert and oriented x3. Clinically looks a little bit better, not as achy and uncomfortable as he was yesterday. He is on room air currently without complaint of shortness of breath. He seems to be moving little bit with ease in bed. CV: S1 and S2. CHEST: Decreased breath sounds. Equal expansion. No acute distress. ABDOMEN: Soft and nontender. HEENT: Moist. No pallor. No JVD. EXTREMITIES: Moves all. No significant edema. MEDICATIONS: Medication list reviewed and from Infectious Disease point of view, the patient is on Rocephin and Zithromax. LABORATORY STUDIES: White count of 11.85, increased from 7.21 from yesterday, hemoglobin 14.7, and platelet 180. Sodium 136, potassium 3.4, and creatinine 0.66. Serology; coronavirus PCR not detected on 11/26 and also 11/27. Remaining serology pending including GC, mycoplasma, and urine for Legionella antigen. Group A strep screen and influenza A and B antigen are negative. MICROBIOLOGY: Blood culture negative 48 hours. Throat culture showed usual respiratory dave. IMAGING: No new radiology studies available, however, CT scan of the chest on 11/27/2019, showed multifocal pneumonia mostly in the right lower lobe, concern viral pneumonia with hepatomegaly and hepatic steatosis. ASSESSMENT AND PLAN: 1. A 44-year-old gentleman, came with fever. 2. Multifocal pneumonia by CT of chest. 3. Concern of viral pneumonia. 4. Follow with serology. 5. Continue monitor the patient clinically and followup with the labs. Please refer to chart for more information. Discussed with Dr. Chakraborty in details. I think overall, the patient has slightly improved. Dictated by Gabino Lujan PA-C (Al) MD ESTIVEN Fernandez/RAMÓN /[id number]
[2019-11-30] MEDS: ENOXAPARIN SOD INJ 40 MG/0.4 ML SYR SC SCH (16:39)
[2019-11-30] MEDS: HYDROCODONE/APAP 5MG-325MG TAB PO PRN (16:39)
--- NOTE | 2019-11-30 19:00 | NUR ---
RECEIVED PATIENT IN BEDSIDE SHIFT REPORT. PATIENT RESTING IN BED AT THIS TIME. MILD HEADACHE REPORTED, UNABLE TO MEDICATE AT THIS TIME. IV TO L WRIST 20G RUNNING NS @ 100ML/HR, ASYMPTOMATIC. BED LOCKED IN LOWEST POSITION, SIDE RAILS UPX2, CALL LIGHT IN REACH.
[2019-11-30] MEDS: PRAVASTATIN 20 MG TAB PO SCH (22:45)
[2019-11-30] MEDS: CEFTRIAXONE SOD 1 GRAM/0.9% SOD CHL 50ML BAG IV SCH (22:45)
[2019-11-30] MEDS: AZITHROMYCIN 250 MG TAB PO SCH (22:45)
[2019-12-01] VITALS (8 sets, daily range): BP systolic 117–138; BP diastolic 71–92
--- NOTE | 2019-12-01 01:17 | Progress Note ---
DATE: 11/30/2019 Medicine Progress Note SUBJECTIVE: The patient was seen early this morning at approximately 10:40 a.m. Discussed plan of care with nursing staff. The patient still reports he is not feeling well. He did have a fever last night. Of note, during my evaluation, he was afebrile, but did have a fever of 101.7 overnight. PHYSICAL EXAMINATION: VITAL SIGNS: Temperature during my evaluation was 98.3, pulse 88, respiratory rate 17, blood pressure was 116/65, and pulse ox is 98% on room air. GENERAL: Not in acute distress. Alert and oriented x3. Cooperative on examination. HEENT: Head; normocephalic, atraumatic. Eyes; pupils are equal, round, and reactive to light bilaterally. Extraocular movements intact bilaterally. Throat; no evidence of erythema or exudates in the posterior pharynx. Has poor dentition. NECK: Supple. Good range of motion. PULMONARY: Clear to auscultation bilaterally. No wheezing, no rales, no rhonchi, no crackles appreciated. CARDIOVASCULAR: Positive S1 and S2. No murmurs, rubs, or gallops appreciated. ABDOMEN: Soft, nondistended, and nontender to palpation. Bowel sounds present. MUSCULOSKELETAL: Strength is 5/5 throughout. No evidence of any muscle deficits on examination. No weakness appreciated. NEUROLOGIC: Cranial nerve II through XII grossly intact. No evidence of any neurological deficits on exam. SKIN: Intact. Warm to touch. Good cap refill. PSYCHIATRIC: Normal affect and mood. EXTREMITIES: No edema. Good range of motion throughout. LABORATORY DATA: Show white count 11.8, hemoglobin 14, hematocrit is 43, platelets of 180. Chemistry; sodium 136, potassium 3.4, chloride 105, bicarb 20, anion gap of 14, BUN is 8, creatinine is 0.66, glucose 181, calcium is 8.2, total bilirubin is 0.4. AST 47, ALT 61, albumin 3. Several serologies are pending. Blood cultures, no growth to-date. Throat cultures were found to be negative. IMAGING STUDIES: Nothing new. IMPRESSION: 1. Community-acquired pneumonia, possible viral etiology, viral pneumonia. 2. Fever with generalized weakness and fatigue, still continues to have a fever of unknown origin. 3. Type 2 diabetes. 4. Hyperlipidemia. PLAN: At this time, he still continues to have a fever. Several serologies have been ordered by ID. His white count was slightly elevated. His all cultures were found to be negative. It seems to be more of a viral etiology. I think ID agrees. We will get a.m. labs as well. Lovenox for DVT prophylaxis. I discussed the plan of care with the patient and nurse present at bedside. The patient verbalized understanding. So far the etiology seems to be more of a pneumonia etiology, but still several serologies are pending. MD PETAR Lopez/MODL /[id number]
[2019-12-01] MEDS: GABAPENTIN 300 MG CAP PO SCH ×2 (08:51→16:11)
[2019-12-01] MEDS: ASPIRIN 325 MG TAB EC PO SCH (08:52)
[2019-12-01] MEDS: INSULIN REGULAR, HUMAN 100 UNIT/1 ML 3ML VIAL SQ SCH ×4 (08:52→21:20)
[2019-12-01] MEDS: SODIUM CHLORIDE 0.9% 1000ML 1,000 ML IV SCH ×3 (08:57→22:00)
[2019-12-01 09:54] LABS: BASOPHILS % 0.1 % (0.0-1.0); HEMATOCRIT 39.2 % (38.2-49.6); HEMOGLOBIN 13.1 g/dL (14.0-18.0); LYMPHOCYTES # (AUTO) 1.1 (1.0-3.2); LYMPHOCYTES % 15.9 % (18.0-39.1); MEAN CORPUSCULAR HEMOGLOBIN 30.7 pg (28-32); MEAN CORPUSCULAR HGB CONC 33.4 g/dL (31-35); MEAN CORPUSCULAR VOLUME 91.8 fL (81-99); MONOCYTES # (AUTO) 0.4 (0.2-0.8); MONOCYTES % 5.3 % (4.4-11.3); NEUTROPHILS # (AUTO) 5.5 (2.1-6.9); NEUTROPHILS % 78.1 % (38.7-80.0); PLATELET COUNT 219 x10e3/uL (140-360); RED BLOOD COUNT 4.27 x10e6/uL (4.3-5.7)
[2019-12-01 10:13] LABS: BLOOD UREA NITROGEN 9 mg/dL (7-26); BUN/CREATININE RATIO 14 (6-25); CALCIUM 7.9 mg/dL (8.4-10.2); CARBON DIOXIDE 21 mmol/L (22-29); CHLORIDE 106 mmol/L (98-107); CREATININE, SERUM 0.63 mg/dL (0.72-1.25); EST GLOMERULAR FILTRATION RATE > 60 ML/MIN (60-); GLUCOSE 189 mg/dL (74-118); SODIUM 137 mmol/L (136-145)
[2019-12-01 11:17] LABS: ALBUMIN 2.6 g/dL (3.5-5.0); BILIRUBIN,DIRECT 0.3 mg/dL (0.0-0.5)
--- NOTE | 2019-12-01 12:00 | NUR ---
RECEIVED PATIENT FROM FLOOR NURSE. PATIENT IS IN STABLE CONDITION. WILL CONTINUE TO MONITOR.
--- NOTE | 2019-12-01 12:04 | Progress Note ---
DATE: SUBJECIVE: The patient is seen and evaluated. Available labs and notes reviewed. Discussed with Dr. Chakraborty. Discussed with the attending. Discussed with the nurse. The patient pretty had couple of bags of chips last night and was in a good mood. Today during my visit, he states that he is doing better. The pain is better. Diarrhea has stopped. He still has some chest discomfort especially when he takes a deep breath by that time it helps to take deep breath here and there. Still has body aches, but shortness of breath improved and fever has improved. OBJECTIVE: VITAL SIGNS: Temperature currently is 98.5, had 100.3 maximum temperature last night at midnight and he has been afebrile since then. Pulse is 70, respiration 20, and blood pressure 124/71. GENERAL: Alert and oriented, comfortable in bed, leaning on his right side and seems weak. CV: S1, S2. CHEST: Decreased breath sounds, but equal expansion. No acute distress. ABDOMEN: Soft, nontender. Positive bowel sounds. HEENT: Moist. No pallor. No JVD. EXTREMITIES: No significant edema. Moves all. No acute finding. MEDICATIONS: Medication list reviewed. From Infectious Disease point of view, the patient is on Zithromax and Rocephin. LABORATORY STUDIES: White count 7, improved from 11.85; hemoglobin 13.1, platelet 219. Sodium 137, potassium 3, creatinine 0.63. Serology: Mycoplasma, toxo, EBV, CMV, GC, all pending. His COVID-19 was not detected on 11/26 and 11/27. Also, his urine Legionella is pending. Influenza A and B were negative on 11/26. MICROBIOLOGY: Blood culture 11/26 and throat culture on 11/26, both negative. RADIOLOGY: No new radiology studies. CT of the chest showed multifocal pneumonia mostly in the right lower lobe with concerns for viral pneumonia on 11/27/2019. ASSESSMENT AND PLAN: 1. Concern viral pneumonia. 2. Possible superimposed bacterial pneumonia. 3. Fever. 4. Diarrhea, resolved. 5. Body ache, improved. 6. Poor appetite improve. Continue with Rocephin and Zithromax for a total of 5 days. Follow up with serology. Also had elevated LFT, which the recheck labs show improvement. ALT and AST slightly higher, alkaline phosphatase went up from 78 to 87. Recheck LFT. Lipase was less than 4. Monitor the patient clinically and follow up with the labs. Discussed with Dr. Chakraborty in detail. Please refer to chart for more information. Dictated by Gabino Ortez) VIC Lujan Rupinder Chakraborty MD /CHERELLEL /[id number]
[2019-12-01] MEDS: POTASSIUM CHLORIDE 20 MEQ TAB CR PO SCH ×2 (12:24→14:40)
[2019-12-01] MEDS: ENOXAPARIN SOD INJ 40 MG/0.4 ML SYR SC SCH (16:11)
[2019-12-01] MEDS: HYDROCODONE/APAP 5MG-325MG TAB PO PRN (16:15)
--- NOTE | 2019-12-01 16:19 | Diagnostic Imaging Report ---
EXAM: CT Chest, Abdomen and Pelvis WITH intravenous contrast INDICATION: Shortness of breath, leukocytosis COMPARISON: Chest CT 11/27/2019 TECHNIQUE: The chest, abdomen and pelvis were scanned utilizing a multidetector helical scanner from the thoracic inlet to the pubic symphysis following administration of IV contrast. Coronal and sagittal reformations were obtained. Scan was performed during portal venous phase. IV CONTRAST: 100cc Isovue 370 ORAL CONTRAST: None COMPLICATIONS: None RADIATION DOSE: Total DLP: 1001 mGy*cm Dose modulation, iterative reconstruction, and/or weight based adjustment of the mA/kV was utilized to reduce the radiation dose to as low as reasonably achievable. FINDINGS: LINES/ TUBES: None. LUNGS AND AIRWAYS: The central airways are patent. Multifocal groundglass and consolidative opacities involve all lobes of both lungs and have increased compared to the prior CT of 11/27/2019. PLEURA: The pleural spaces are clear. HEART AND MEDIASTINUM: The thyroid gland is normal. No mediastinal, hilar or axillary lymphadenopathy. The heart is normal in size.. There is no pericardial effusion. HEPATOBILIARY: Diffuse hepatic steatosis. Hepatomegaly. No focal liver lesion. Unremarkable gallbladder. SPLEEN: No splenomegaly. PANCREAS: No focal masses or ductal dilatation. ADRENALS: No adrenal nodules. KIDNEYS/URETERS: No hydronephrosis, stones, or solid mass lesions. PELVIC ORGANS/BLADDER: Unremarkable. PERITONEUM / RETROPERITONEUM: No free air or fluid. LYMPH NODES: No lymphadenopathy. VESSELS: Unremarkable. GI TRACT: No abnormal bowel thickening. No bowel obstruction. Normal appendix. BONES AND SOFT TISSUES: No acute osseous injury. No suspicious lytic or blastic lesions. IMPRESSION: Interval increase in multifocal groundglass and consolidative opacities throughout both lungs consistent with multifocal pneumonia. Diffuse hepatic steatosis and hepatomegaly. Otherwise, no acute findings in the abdomen or pelvis. Signed by: Arash Hutchinson MD on 12/01/2019 4:16 PM
[2019-12-01] MEDS ORDERED: IOPAMIDOL 370 MG/ML 200 ML INFUS..BTL INJ ONE (18:25)
[2019-12-01] MEDS ORDERED: SODIUM CHLORIDE 0.9% 50ML 50 ML ONE (18:25)
--- NOTE | 2019-12-01 19:08 | NUR ---
BEDSIDE SHIFT REPORT GIVEN TO ONCOMING NURSE. PATIENT IS RESTING IN BED. NO ACUTE DISTRESS NOTED. CALL LIGHT WITHIN REACH.
--- NOTE | 2019-12-01 19:20 | NUR ---
Patient visited in room during nursing rounds. Patient alert and oriented x3. Ambulatory in room with standby assist prn. Pt on contact isolation for precaution purposes. Pt on scheduled antibiotic treatment. On IVF (NS at 100ml/hr). Call pires within reach. Will monitor pt closely.
[2019-12-01] MEDS: CEFTRIAXONE SOD 1 GRAM/0.9% SOD CHL 50ML BAG IV SCH (20:15)
[2019-12-01] MEDS: PRAVASTATIN 20 MG TAB PO SCH (20:15)
[2019-12-01] MEDS: AZITHROMYCIN 250 MG TAB PO SCH (20:15)
[2019-12-02] VITALS (8 sets, daily range): BP systolic 116–139; BP diastolic 74–83
--- NOTE | 2019-12-02 02:36 | Progress Note ---
DATE: 12/01/2019 Medicine Progress Note SUBJECTIVE: The patient had a temperature of 98.5 during my evaluation, T-max 100.3. He reports that he is still not feeling well. He reports shortness of breath still. Discussed plan of care with ID. PHYSICAL EXAMINATION: VITAL SIGNS: Temperature is 98.1, pulse is 70, respiratory rate 20, blood pressure 120/77, pulse ox 95% on room air. GENERAL: In no acute distress. Alert and oriented x3. Cooperative on examination. HEENT: Head is normocephalic and atraumatic. Eyes; pupils are reactive to light bilaterally. Extraocular movements intact bilaterally. Throat; no evidence of erythema or exudates in the posterior pharynx. Has poor dentition. NECK: Supple. Good range of motion. PULMONARY: Clear to auscultation bilaterally. No wheezing, rales, or rhonchi. No crackles appreciated. CARDIOVASCULAR: Positive S1, S2. No murmurs, rubs, or gallops appreciated. ABDOMEN: Soft, nondistended, and nontender to palpation. Bowel sounds present. MUSCULOSKELETAL: Strength is 5/5 throughout. No evidence of any muscle deficits on examination. No weakness appreciated. NEUROLOGIC: Cranial nerves II through XII grossly intact. No evidence of any neurological deficits on exam. SKIN: Intact. Warm to touch. Good cap refill. PSYCHIATRIC: Normal affect and mood. EXTREMITIES: No edema. Good range of motion throughout. LABORATORY DATA: White count 7, hemoglobin 13, hematocrit 39, and platelets of 219. Chemistry; sodium 137, potassium 3 replace, chloride 106, bicarb 21, anion gap of 13, BUN is 9 and creatinine 0.63, glucose is 189, calcium is 7.9. His ferritin was 1082. LFTs were noted. Albumin was 2.6. C-ANCA, p-ANCA, and ABELARDO has been ordered. Several serologies are pending. Toxoplasmosis pending. EBV, CMV included Trichomonas, pending. Urine Legionella pending. Flu was negative. Blood cultures, urine, and throat cultures, no growth. IMAGING STUDIES: Repeat chest CT with IV contrast shows interval increase in multifocal ground-glass consolidative opacities throughout both lungs consistent with multifocal pneumonia. Diffuse hepatic steatosis and hepatomegaly. Otherwise, no acute findings in the abdomen or pelvis. IMPRESSION: 1. Multifocal pneumonia. 2. Fever with generalized weakness and fatigue-fever resolved or improved. 3. Type 2 diabetes. 4. Hyperlipidemia. PLAN: At this time, I had a long discussion with ID. Repeat CT chest still shows multifocal pneumonia. We consulted with Pulmonary and likely will need a bronchoscopy. Several serologies are still pending and also several more serologies have been ordered. We will maintain on IV antibiotics as per ID recommendations. Decrease IV fluids to 50 mL/h. Get a.m. labs. Await recommendations by Pulmonary once evaluated. Lovenox for DVT prophylaxis. The patient is not ready for discharge at this time. We will continue to monitor very closely. MD PETAR Lopez/RAMÓN /[id number]
--- NOTE | 2019-12-02 04:00 | NUR ---
Patient had a bath by self. Pt tolerated bath well.
[2019-12-02] MEDS: SODIUM CHLORIDE 0.9% 1000ML 1,000 ML IV SCH (05:00)
[2019-12-02 06:54] LABS: BASOPHILS % 0.2 % (0.0-1.0); HEMATOCRIT 40.5 % (38.2-49.6); HEMOGLOBIN 13.6 g/dL (14.0-18.0); LYMPHOCYTES # (AUTO) 0.8 (1.0-3.2); LYMPHOCYTES % 15.7 % (18.0-39.1); MEAN CORPUSCULAR HEMOGLOBIN 30.6 pg (28-32); MEAN CORPUSCULAR HGB CONC 33.6 g/dL (31-35); MONOCYTES # (AUTO) 0.4 (0.2-0.8); MONOCYTES % 7.6 % (4.4-11.3); NEUTROPHILS % 75.7 % (38.7-80.0); PLATELET COUNT 296 x10e3/uL (140-360); RED BLOOD COUNT 4.45 x10e6/uL (4.3-5.7); RED CELL DISTRIBUTION WIDTH 14.1 % (11.7-14.4)
--- NOTE | 2019-12-02 07:05 | NUR ---
RCD PT AT BED PT IS ALERT AND ORIENTED RESTING ON BED IV PATENT BY SALINE FLUSH BED LOW AND LOCKED CALL LIGHT IN REACH
[2019-12-02] MEDS: INSULIN REGULAR, HUMAN 100 UNIT/1 ML 3ML VIAL SQ SCH ×4 (07:30→20:27)
[2019-12-02 07:42] LABS: ANION GAP 9.5 mmol/L (8-16); BLOOD UREA NITROGEN 8 mg/dL (7-26); BUN/CREATININE RATIO 11 (6-25); CALCIUM 8.1 mg/dL (8.4-10.2); CARBON DIOXIDE 22 mmol/L (22-29); CHLORIDE 113 mmol/L (98-107); CREATININE, SERUM 0.71 mg/dL (0.72-1.25); EST GLOMERULAR FILTRATION RATE > 60 ML/MIN (60-); GLUCOSE 199 mg/dL (74-118); POTASSIUM 3.5 mmol/L (3.5-5.1); SODIUM 141 mmol/L (136-145)
[2019-12-02] MEDS: ASPIRIN 325 MG TAB EC PO SCH (09:00)
[2019-12-02] MEDS: GABAPENTIN 300 MG CAP PO SCH ×2 (09:00→17:00)
[2019-12-02] MEDS: HYDROCODONE/APAP 5MG-325MG TAB PO PRN (12:15)
--- NOTE | 2019-12-02 12:23 | Progress Note ---
DATE: SUBJECTIVE: The patient is seen and evaluated. Available labs and notes reviewed. I discussed with the nurse. The patient had a bowl of cereal apparently and not much of overall intake. I discussed with the patient, complained of left lower quadrant and abdominal discomfort and he pretty much does not vomit to examine that area. Denied diarrhea and says he does not have a bowel movement since yesterday. No nausea or vomiting. Still with some chest discomfort and states that he just does not feel good. OBJECTIVE: VITAL SIGNS: Temperature 97.5, pulse 72, respirations 17, blood pressure 131/82. GENERAL: Alert and oriented, seems to be comfortable, but very weak and reluctant to talk. is in the room. Discussed with the . Questions answered. CV: S1-S2. CHEST: Equal expansion. Decreased breath sounds. No acute distress. No cough during my visit with the patient. ABDOMEN: Soft with discomfort left lower quadrant. Positive bowel sounds. The parts of the abdomen are not tender. HEENT: Moist. No pallor. No JVD. EXTREMITIES: Weak, moves all, but not as achy as he used to be. MEDICATIONS: Reviewed from Infectious Disease point of view, the patient is on Zithromax and Rocephin. LABORATORY STUDIES: On 12/01, white count 5.28, hemoglobin 13.6, platelet 296. Sodium 141, potassium 3.5, creatinine 0.71. Serology; PCR coronavirus on 11/27 is negative. Mycoplasma IgM less than 770 with the IgG of 122. Urine Legionella, toxoplasma, EBV workup, CMV workup, GC, all pending. The patient's influenza type A and B was also negative. Microbiology; blood culture on 11/26 and throat culture on 11/26 is negative so far. IMAGING: The patient had a CT of abdomen and pelvis, yesterday showing interval increase in multifocal ground-glass and consolidative opacities throughout both lungs consistent with multifocal pneumonia. Also, diffuse hepatic steatosis with hepatomegaly, otherwise no acute findings in the abdomen and pelvis. The patient's AST improved yesterday from 47 to 40 with ALT improved from 61 to 53, alkaline phosphatases improved from 87 to 82. Total bilirubin of 0.4, lipase of less than 4. ASSESSMENT AND PLAN: 1. Multifocal pneumonia. 2. Fever improved. 3. General weakness seems to be improved some. 4. Diabetes. 5. Body aches. 6. Poor oral intake. 7. The patient remains on Rocephin and Zithromax. Leukocytosis resolved. Follow with serology. Monitor the patient clinically. Follow with the labs. Stop the antibiotics soon. Please refer to chart for more information. Discussed with Dr. Chakraborty in details. Dictated by Gabino Ortez) VIC Lujan Rupinder Chakraborty MD /MODL /[id number]
--- NOTE | 2019-12-02 13:14 | NUR ---
Pulmonary [id number] dictated Thanks
--- NOTE | 2019-12-02 13:17 | NUR ---
PULMONARY Tentative bronchoscopy ~930 am on Friday12/03/19
[2019-12-02] MEDS ORDERED: POTASSIUM CHLORIDE 20 MEQ TAB CR PO ONE (14:10)
--- NOTE | 2019-12-02 15:15 | Consultation ---
DATE OF CONSULTATION: 12/02/2019 Pulmonary Medicine Consult REASON FOR REFERRAL: Abnormal chest radiography. HISTORY OF PRESENT ILLNESS: Mr. Georges is a pleasant 44-year-old gentleman with abnormal chest radiography. The patient with roughly 2 weeks of symptoms. The patient presented to urgent care situation, where he was having fevers and coughing. He was having malaise and shortness of breath. Reportedly, he had COVID-19 testing, which was negative at that facility, but he was told he had a unilateral pneumonia. The patient tentatively had fevers and worsening, and he presented to [facility] on November 27, 2019. The patient had similar symptoms that were not abating. He did have recorded fever to 102.0 degrees in our hospital facility. Chest radiography demonstrated bilateral pneumonitis. Yesterday, he had CT chest, which demonstrated bilateral atelectasis and mostly consolidative opacities throughout the lungs consistent with multifocal pneumonia. At this point, I am consulted. The patient had 2 other COVID-19 tests in this facility, which were negative for PCR and RNA. His AST was 47 and ALT was 68. Ferritin 1082. PAST MEDICAL HISTORY: Diabetes, hyperlipidemia, obese with BMI 33.9. ALLERGIES: NO KNOWN DRUG ALLERGIES. MEDICATIONS: Aspirin, gabapentin, pravastatin, glimepiride, metformin, and Zofran. SOCIAL HISTORY: Social alcohol. He smokes about 4 cigarettes a week. No other forms of smoking. No drugs. 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 He has one dog at home. No significant exposures known from hobbies. He lives in a home with 3 of his children of age 12, 20, 22. One of his children actively works in private child guidance counselor at this time. One of his children works in industrial radiography. There is also one grandchild that stays the most significant amount of time because mother is a nurse. FAMILY HISTORY: Noncontributory to this. REVIEW OF SYSTEMS: GENERAL: No chronic weight changes. OPHTHALMOLOGIC: No floaters. ENT: No thyroid disease. PULMONARY: No asthma. CARDIAC: No heart attack. GI: No constipation, but there is some nonspecific left lower quadrant pain. : No dysuria. NEUROLOGIC: No seizures. DERMATOLOGIC: No rash. PHYSICAL EXAMINATION: VITAL SIGNS: Afebrile right now, vital signs noted and reviewed per the chart record. GENERAL: He looks very much pale. He still feels horrible and he is barely moving due to discomfort. He is not in any respiratory distress, however. HEENT: Normocephalic and atraumatic. NECK: Supple. Throat midline. LUNGS: Bilateral air entry, limited. CARDIOVASCULAR: S1 and S2. No murmurs, rubs, or gallops. ABDOMEN: Soft and nontender. EXTREMITIES: No clubbing. No cyanosis. No edema. INTEGUMENT: No rash. No purpura. LABORATORY DATA: Potassium 3.5, BUN 8, creatinine 0.71. 5.3 white count, 40 hematocrit. IMPRESSION AND PLAN: 1. Bilateral pneumonitis, atypical pneumonia pattern. At this time, most likely diagnosis is probably post COVID-19 syndrome, although other etiology is definitely possible. Rule out other atypical pneumonia syndromes, and noninfectious causes. 2. Syndrome of fevers, nonspecific inflammatory markers. Rule out active sepsis, active infection, rule out non-infectious etiologies. 3. Abnormal chest radiography, possible non-infectious pneumonitis. ?organizing pneumonia 4. Elevated LFTs, improving slowly. 5. Diabetes. 6. Microscopic hematuria. 7. Nonspecific abdominal pain. 8. Hyperlipidemia. Check COVID-19 antibodies, especially IgG. Discussed with team and they prefer early bronchoscopy to evaluate for any high grade infections. Furthermore, we will consider lung biopsy if feasible. If the patient remains appearing to be in pain and malaise, we can consider some dosing of steroids. It is reasonable to continue antibiotics for, pneumonia at this time. I agreed to look for Legionella antigen. Histoplasmosis Ab. If no readily available diagnosis is present, we will evaluate for vasculitides as well as for connective tissue diseases. Tentative bronchoscopy tomorrow at 9:30 a.m. Thank you very much, Dr. Menendez and Dr. Chakraborty, for this consult. Please call for questions. MD LUZ MARIA Valdovinos/RAMÓN /[id number]
[2019-12-02 15:19] LABS: INR 0.88; PARTIAL THROMBOPLASTIN TIME 31.3 seconds (23.8-35.5); PROTHROMBIN TIME 12.4 seconds (11.9-14.5)
--- NOTE | 2019-12-02 18:53 | NUR ---
PT RESTING ON BED BED SIDE REPORT GIVEN TO ONCOMING NURSE
--- NOTE | 2019-12-02 19:03 | NUR ---
PT RESTING ON BED BED SIDE REPORT GIVEN TO ONCOMING NURSE
--- NOTE | 2019-12-02 19:30 | NUR ---
Patient visited in room during nursing rounds. Patient alert and oriented x3. Ambulatory in room with standby assist prn. Pt on scheduled antibiotic treatment. On IVF (NS at 100ml/hr). Pt also scheduled for Bronchoscopy with biopsy tomorrow (12/03/19). Call pires within reach. Will monitor pt closely.
[2019-12-02] MEDS: AZITHROMYCIN 250 MG TAB PO SCH (20:23)
[2019-12-02] MEDS: CEFTRIAXONE SOD 1 GRAM/0.9% SOD CHL 50ML BAG IV SCH (20:23)
[2019-12-02] MEDS: PRAVASTATIN 20 MG TAB PO SCH (20:23)
[2019-12-03] VITALS (8 sets, daily range): BP systolic 125–135; BP diastolic 72–84
--- NOTE | 2019-12-03 00:21 | Progress Note ---
DATE: 12/02/2019 Medicine Progress Note SUBJECTIVE: The patient was seen and evaluated at approximately 12:30 p.m. in the afternoon. The patient is scheduled to get a bronchoscopy tomorrow by Pulmonary. I discussed this case with Pulmonary and ID. I also discussed this with the family and the patient and they verbalized understanding. LABORATORY FINDINGS: Show white count is 5.2, hemoglobin 13.6, hematocrit 40, platelets of 296. Chemistry, sodium 141, potassium 3.5, chloride 113, bicarb 22, anion gap was 9.5. BUN is 8, creatinine is 0.71. Glucose is 199, c-ANCA, p-ANCA, ABELARDO are all pending. Several serologies are still pending. Coronavirus was negative. PHYSICAL EXAMINATION: VITAL SIGNS: Temperature 98.3, pulse 81, respiratory rate 20, blood pressure 113/80, pulse ox 97% on room air. GENERAL: In no acute distress. Alert and oriented x3. Cooperative on examination. HEENT: Head is normocephalic and atraumatic. Eyes; pupils are equal, round, and reactive to light bilaterally. Extraocular movements intact bilaterally. Throat; no evidence of erythema or exudates in the posterior pharynx. Has poor dentition. NECK: Supple. Good range of motion. PULMONARY: Clear to auscultation bilaterally. No wheezing, rales, or rhonchi. No crackles appreciated. CARDIOVASCULAR: Positive S1, S2. No murmurs, rubs, or gallops appreciated. ABDOMEN: Soft, nondistended, and nontender to palpation. Bowel sounds present. MUSCULOSKELETAL: Strength is 5/5 throughout. No evidence of any muscle deficits on examination. No weakness appreciated. NEUROLOGIC: Cranial nerves 2 through 12 are grossly intact. No evidence of any neurological deficits on exam. SKIN: Intact. Warm to touch. Good cap refill. PSYCHIATRIC: Normal affect and mood. EXTREMITIES: No edema. Good range of motion throughout. IMPRESSION: 1. Multifocal pneumonia. 2. Fever with generalized weakness and fatigue. 3. Type 2 diabetes. 4. Hyperlipidemia. PLAN: At this time, I had a long conversation with the family and the patient at bedside in which Pulmonary came and evaluated the patient and he recommends bronchoscopy. The family and the patient agrees to bronchoscopy. Risks and benefits were discussed with the patient and the family. Several serologies are pending. Continue with IV antibiotics per ID recommendations. He is going to be n.p.o. after midnight. Bronchoscopy scheduled for tomorrow. Lovenox for DVT prophylaxis. The patient is not ready for discharge at this time. MD PETAR Lopez/RAMÓN /[id number]
[2019-12-03 07:03] LABS: BASOPHILS % 0.2 % (0.0-1.0); EOSINOPHILS % 0.2 % (0.0-6.0); HEMATOCRIT 41.5 % (38.2-49.6); HEMOGLOBIN 14.1 g/dL (14.0-18.0); LYMPHOCYTES # (AUTO) 1.1 (1.0-3.2); LYMPHOCYTES % 19.1 % (18.0-39.1); MEAN CORPUSCULAR HEMOGLOBIN 30.3 pg (28-32); MEAN CORPUSCULAR VOLUME 89.2 fL (81-99); MONOCYTES # (AUTO) 0.6 (0.2-0.8); MONOCYTES % 9.5 % (4.4-11.3); NEUTROPHILS # (AUTO) 4.1 (2.1-6.9); NEUTROPHILS % 70.3 % (38.7-80.0); PLATELET COUNT 354 x10e3/uL (140-360); RED BLOOD COUNT 4.65 x10e6/uL (4.3-5.7); RED CELL DISTRIBUTION WIDTH 13.8 % (11.7-14.4)
--- NOTE | 2019-12-03 07:10 | NUR ---
RCD PT AT BED PT IS ALERT AND ORIENTED RESTING ON BED IV PATENT BY SALINE FLUSH PT NPO FOR PROCEDURE BED LOW AND LOCKED CALL LIGHT IN REACH
[2019-12-03 07:28] LABS: ANION GAP 13.4 mmol/L (8-16); BLOOD UREA NITROGEN 8 mg/dL (7-26); BUN/CREATININE RATIO 14 (6-25); CALCIUM 8.5 mg/dL (8.4-10.2); CARBON DIOXIDE 22 mmol/L (22-29); CHLORIDE 105 mmol/L (98-107); CREATININE, SERUM 0.59 mg/dL (0.72-1.25); EST GLOMERULAR FILTRATION RATE > 60 ML/MIN (60-); GLUCOSE 164 mg/dL (74-118); POTASSIUM 3.4 mmol/L (3.5-5.1); SODIUM 137 mmol/L (136-145)
[2019-12-03] MEDS: INSULIN REGULAR, HUMAN 100 UNIT/1 ML 3ML VIAL SQ SCH ×4 (07:30→22:00)
[2019-12-03] MEDS ORDERED: LIDOCAINE HCL 2% 30 ML TUBE ONE (07:52)
[2019-12-03] MEDS ORDERED: LIDOCAINE HCL 4% 50 ML BTL ONE (07:52)
[2019-12-03] MEDS ORDERED: EPINEPHRINE HCL 1:1000 1ML 1 MG/ML AMP ONE (07:53)
[2019-12-03] MEDS: GABAPENTIN 300 MG CAP PO SCH ×2 (09:00→17:00)
--- NOTE | 2019-12-03 09:22 | NUR ---
PT WENT TO PROCEDURE IN SAFE CONDITION
--- NOTE | 2019-12-03 11:30 | NUR ---
PT BACK AFTER PROCEDURE PT IS ALERT AND ORIENTED VITALS CHECKED PT RESTING ON BED BED LOW AND LOCKED FAMILY AT BED SIDE ,PT ON DROPLET ISOLATION DUE TO VIRAL PNEUMONIA
--- NOTE | 2019-12-03 11:32 | Diagnostic Imaging Report ---
X-ray chest AP portable History: Pneumonia Comparison: 12/01/2019 Findings: Poor inspiratory effort. Central airways unremarkable. Heart size normal. Mediastinal silhouettes normal given the limitations. No definite pleural effusion. No pneumothorax. Bilateral diffuse infiltrates, primarily interstitial and coalescing into airspace in the right mid and lower lung zones and more focally in the left lower lung zone have worsened compared with the previous exam. No acute changes in the visualized skeletal structures and upper abdomen. Impression: Worsening of bilateral lung infiltrates as described. Signed by: Dale Galeana MD on 12/03/2019 11:29 AM
--- NOTE | 2019-12-03 11:43 | NUR ---
Pulmonary Medicine DATE 12/03/2019 SUBJECTIVE: Mildly low k Still with low energy Had bronchoscopy today, no complications Discussed with . Await results REVIEW OF SYSTEMS: no headaches, no bleeding PHYSICAL EXAMINATION: VITAL SIGNS: vital signs noted and reviewed per the chart record. GENERAL: Appears pale. No respiratory distress, awake HEENT: Normocephalic and atraumatic. NECK: Supple. Throat midline. LUNGS: Bilateral air entry, limited. CARDIOVASCULAR: S1 and S2. No murmurs, rubs, or gallops. ABDOMEN: Soft and nontender. EXTREMITIES: No clubbing. No cyanosis. No edema. INTEGUMENT: No rash. No purpura. LABORATORY DATA: k 3.4, cr 0.59. wbc 5.8. hct 41. plt 354 IMPRESSION AND PLAN: 1. Bilateral pneumonitis, atypical pneumonia pattern. Most commonly a resolving pneumonia pattern. The most probable diagnosis is still probably post COVID-19 pneumonitis, although other etiologies are possible. Rule out other atypical infectious pneumonia syndromes, and noninfectious causes. 2. Syndrome of fevers, nonspecific inflammatory markers. Treat as active sepsis, active infection, rule out non-infectious etiologies. 3. Abnormal chest radiography, possible non-infectious pneumonitis. ?organizing pneumonia 4. Elevated LFTs, improving slowly. 5. Diabetes. 6. Microscopic hematuria. 7. Nonspecific abdominal pain. 8. Hyperlipidemia. Follow up COVID-19 antibodies, especially IgG. Get bronchoscopy today. Follow results Continue empiric antibiotics. Reasonable to start some steroids while ruling out high grade infections Histoplasmosis CF test ordered, pending Follow up Legionella antigen. If no etiology is readily available after the above testing, consider looking for vasculitides or connective tissue diseases. Thank you very much, Dr. Menendez and Dr. Chakraborty, for this consult. Please call for questions.
[2019-12-03] MEDS: METHYLPREDNISOLONE SOD SUCC 125 MG/2ML VIAL IV SCH ×2 (12:00→21:20)
--- NOTE | 2019-12-03 12:03 | NUR ---
BRONCHOSCOPY [id number]
--- NOTE | 2019-12-03 12:24 | Progress Note ---
DATE: SUBJECTIVE: The patient is seen and evaluated in PACU. Gives me thumbs-up, stating that he feels better, however, not much verbal. The patient just had bronchoscopy. We will follow up with the cultures. PHYSICAL EXAMINATION: VITAL SIGNS: Temperature 97.9, pulse 75, respirations 16, and blood pressure 120/77. GENERAL: Seems to be alert and oriented, comfortable in bed, just back from bronchoscopy. The patient is in PACU. No acute distress. CV: S1 and S2. CHEST: Equal expansion. Decreased breath sounds. No acute distress. ABDOMEN: Soft. No distention. No tender. HEENT: Moist. No pallor. No JVD. EXTREMITIES: Weak. No significant edema. MEDICATIONS: Medication list reviewed and from ID point of view, the patient is on Zithromax and Rocephin. LABORATORY STUDIES: White count of 5.81, hemoglobin 14.1, and platelet 354. Sodium 137, potassium 3.4, and creatinine 0.59. Serology; mycoplasma IgM less than 770. Chlamydia IgM less than 1-10. Antibody with IgM of less than 0.8. Remainder of the serology is pending that includes toxoplasmosis, EBV, CMV. ASSESSMENT AND PLAN: 1. Multifocal pneumonia. 2. Acute respiratory distress syndrome. 3. Fever, improved. 4. General weakness. 5. Diabetes. 6. Poor oral intake. 7. Body ache, improved. 8. Status post bronch. 9. Follow up with the bronch cultures, start the patient on Solu-Medrol 60 mg IV q.12 hours for 2 doses only and then we will switch the patient to prednisone 40 mg p.o. daily starting tomorrow, 12/04/2019. The patient remains on Rocephin and Zithromax. Monitor the patient clinically. Follow with the bronch results. Follow with the serology. Solu-Medrol and prednisone. Plan was discussed with the pharmacy and the nurse. Please refer to chart for more information. The patient is seen and evaluated with Dr. Chakraborty present. Dictated by Gabino Lujan PA-C (Al) Rupinder Chakraborty MD /MODL /[id number]
[2019-12-03] MEDS ORDERED: POTASSIUM CHLORIDE 20 MEQ TAB CR PO ONE (12:30)
[2019-12-03 14:23] LABS: BODY FLUID APPEARANCE SL.CLOUDY; BODY FLUID COLOR STRAW; BODY FLUID TYPE BAL
[2019-12-03 14:33] LABS: RBC,BODY FLUID 459 cells/uL; WBC,BODY FLUID 109 cells/uL
--- NOTE | 2019-12-03 19:10 | NUR ---
REPORT GIVEN TO MAGALY
--- NOTE | 2019-12-03 19:40 | Operative Report ---
DATE OF PROCEDURE: 12/03/2019 SURGEON: Yuan Kelly MD PROCEDURE: Fiberoptic bronchoscopy, bronchial washes, bronchoalveolar lavage right lower lobe, transbronchial lung biopsies right lower lobe. CONSENT: Informed consent from the patient and . INDICATION: Atypical pneumonia. ANESTHESIA: Monitored anesthesia care by Anesthesiology. OPERATIVE FINDINGS: The patient intubated by anesthesia team. Ventilator adjustments made for low pressure including no PEEP. The patient with bronchoscope inserted into the tracheobronchial tree. Airway configuration was normal and without masses and without excess secretions. The patient with BAL performed right lower lobe lateral segment trying to adjust the patient right side up about 30 degrees with small yield, but eventually some yield. The patient with bronchial washes. Transbronchial lung biopsies performed of multiple segments of right lower lobe. The patient thereafter noted with good hemostasis and the bronchoscope was removed and the procedure was terminated and the patient was left to recover with anesthesia. COMPLICATIONS: None. ESTIMATED BLOOD LOSS: Minimal. Fiberoptic flexible bronchoscopy, bronchial washes, right lower lobe BAL, right lower lobe transbronchial lung biopsies performed for atypical pneumonia. RECOMMENDATIONS: Follow up results including viral testing, CD4, CD8 ratios, microbiology, and pathology. MD LUZ MARIA Valdovinos/CHERELLEL /[id number]
[2019-12-03 20:37] LABS: LYMPHOCYTES,BODY FLUID 79 %; MONO/MACROPHG,BODY FLUID 10 %; NEUTROPHILS,BODY FLUID 2 %; OTHER CELLS,BODY FLUID 9 %
[2019-12-03] MEDS ORDERED: SODIUM CHLORIDE 0.9% 250ML 250 ML ONE (20:38)
[2019-12-03] MEDS: CEFTRIAXONE SOD 1 GRAM/0.9% SOD CHL 50ML BAG IV SCH (21:20)
[2019-12-03] MEDS: AZITHROMYCIN 250 MG TAB PO SCH (21:20)
[2019-12-03] MEDS: PRAVASTATIN 20 MG TAB PO SCH (21:22)
[2019-12-03] MEDS ORDERED: LIDOCAINE HCL 2% LOCAL INJ 5 ML SDV VIAL INJ ONE (21:35)
[2019-12-03] MEDS ORDERED: PROPOFOL IV EMULSION 10 MG/ML 20 ML VIAL ONE (21:35)
[2019-12-03] MEDS ORDERED: SUCCINYLCHOLINE CHLORIDE 20 MG/ML 10ML VIAL ONE (21:35)
[2019-12-03] MEDS ORDERED: ONDANSETRON HCL INJ 2MG/ML 2ML 2 MG/ML VIAL ONE (21:35)
[2019-12-03] MEDS ORDERED: ROCURONIUM BROMIDE 10 MG/ML 5ML VIAL IV ONE (21:35)
[2019-12-03] MEDS ORDERED: DEXAMETHASONE SOD PHOS INJ 4 MG/ML VIAL ONE (21:35)
[2019-12-03] MEDS ORDERED: SEVOFLURANE INHAL SOLN 250 ML PEN BTL ONE (21:35)
--- NOTE | 2019-12-03 23:46 | Progress Note ---
DATE: 12/03/2019 Medicine Progress Note SUBJECTIVE: The patient was seen early this afternoon approximately around 12:30 p.m. The patient was doing well. He underwent bronchoscopy. He was eating his lunch. He still reports not feeling well. He has been afebrile. LABORATORY DATA: White count 5.8, hemoglobin 14, hematocrit 41, platelets of 354. Chemistry, sodium 137, potassium 3.4, chloride 105, bicarb 22, anion gap of 13. BUN is 8, creatinine 0.59. The BAL shows cloudy straw. WBCs 109, RBCs 459, lymphocytes 79. His ABELARDO was negative. C-ANCA, p-ANCA were all pending. Serologies, several serologies are pending. BAL washings is pending. DIAGNOSTIC STUDIES: Chest x-ray this morning, worsening of the bilateral lung infiltrates as described. PHYSICAL EXAMINATION: VITAL SIGNS: Temperature was 97.8, pulse 77, respiratory rate 16, blood pressure is 126/84, pulse ox 96%. He was on 2 L nasal cannula. GENERAL: In no acute distress. Alert and oriented x3. Cooperative on examination. PULMONARY: Clear to auscultation bilaterally. No wheezing, rales, or rhonchi. No crackles appreciated. CARDIOVASCULAR: Positive S1, S2. No murmurs, rubs, or gallops. GASTROINTESTINAL: Abdomen is soft, nondistended, and nontender to palpation. Bowel sounds present. MUSCULOSKELETAL: Strength is 5/5 throughout. No evidence of any muscle deficits on examination. No weakness appreciated. NEUROLOGIC: Cranial nerves 2 through 12 are grossly intact. No evidence of any neurological deficits on exam. SKIN: Intact. Warm to touch. Good cap refill. PSYCHIATRIC: Normal affect and mood. EXTREMITIES: No edema. Good range of motion throughout. IMPRESSION: 1. Multifocal pneumonia, status post bronchoscopy with washout performed on 12/03/2019. 2. Fever with generalized weakness and fatigue. 3. Type 2 diabetes. 4. Hyperlipidemia. PLAN: The patient underwent bronchoscopy on 12/03/2019, with washout with several serologies sent as well as cultures. We will await those final results. He is afebrile, white count normal. Continue with antibiotics. He has been started on IV steroids x2 doses. Follow recommendations by Pulmonary and ID. Lovenox for DVT prophylaxis. The patient is not ready for discharge at this time. MD PETAR Lopez/RAMÓN /[id number]
[2019-12-04] VITALS (9 sets, daily range): BP systolic 105–148; BP diastolic 74–85
[2019-12-04] MEDS: INSULIN REGULAR, HUMAN 100 UNIT/1 ML 3ML VIAL SQ SCH ×4 (08:00→21:33)
[2019-12-04 08:03] LABS: BASOPHILS % 0.2 % (0.0-1.0); HEMATOCRIT 41.4 % (38.2-49.6); HEMOGLOBIN 14.2 g/dL (14.0-18.0); LYMPHOCYTES # (AUTO) 0.9 (1.0-3.2); MEAN CORPUSCULAR HEMOGLOBIN 30.5 pg (28-32); MEAN CORPUSCULAR HGB CONC 34.3 g/dL (31-35); MEAN CORPUSCULAR VOLUME 88.8 fL (81-99); MONOCYTES # (AUTO) 0.6 (0.2-0.8); MONOCYTES % 9.9 % (4.4-11.3); NEUTROPHILS # (AUTO) 4.7 (2.1-6.9); NEUTROPHILS % 74.5 % (38.7-80.0); PLATELET COUNT 449 x10e3/uL (140-360); RED BLOOD COUNT 4.66 x10e6/uL (4.3-5.7); RED CELL DISTRIBUTION WIDTH 13.8 % (11.7-14.4)
[2019-12-04 08:25] LABS: BLOOD UREA NITROGEN 14 mg/dL (7-26); BUN/CREATININE RATIO 19 (6-25); CALCIUM 8.6 mg/dL (8.4-10.2); CARBON DIOXIDE 20 mmol/L (22-29); CHLORIDE 104 mmol/L (98-107); CREATININE, SERUM 0.73 mg/dL (0.72-1.25); EST GLOMERULAR FILTRATION RATE > 60 ML/MIN (60-); GLUCOSE 363 mg/dL (74-118); SODIUM 135 mmol/L (136-145)
[2019-12-04] MEDS: PREDNISONE 20 MG TAB PO SCH (08:55)
[2019-12-04] MEDS: GABAPENTIN 300 MG CAP PO SCH ×2 (08:55→17:51)
--- NOTE | 2019-12-04 15:21 | NUR ---
Nutrition Screen Note RD Recommendation for Physician: -Recommend 1800 kcal ADA diet Plan of Care: RD following, monitoring for tolerance and adequacy Nutrition reason for involvement: Length of stay Primary Diagnose(s): viral pneumonia PMH: Type 2 diabetes, morbidly obese, and hyperlipidemia Ht: 68 in Wt:198.06 lb BMI: 30.1 kg/m2 IBW: [address] Assessment: (12/04/19) Chart reviewed. Labs and meds reviewed. Pt is a 44 year old male admitted with viral pneumonia. Unable to enter room since pt is on droplet isolation precautions due to viral pneumonia. Attempted to call pt over the phone, but he did not answer. Therefore, RD called RN who stated pt is eating >50% of his meals. Unable to obtain weight history from pt. No N/V, but pt is having loose stools per RN. Will continue to monitor Current Diet: cardiac Malnutrition Evaluation (12/04/19) Unable to fully assess. Will re-evaluate at follow-up as appropriate. Diet Education Needs Assessment: RD is available for diet education as needed Nutrition Care Level: low Signed: Sammi Thompson, ELISEO, LD
--- NOTE | 2019-12-04 16:29 | NUR ---
PROGRESS NOTE [id number]
--- NOTE | 2019-12-04 16:29 | Progress Note ---
DATE: 12/04/2019 Nephrology Progress Note SUBJECTIVE: The patient doing well today. Last sodium was 125. He is ready to go home. He is stable. He has no other issues at this time. He is asymptomatic. No lightheadedness or dizziness. The patient is doing well today with no complaints. No lightheadedness or dizziness. He does occasionally report having some shortness of breath. PHYSICAL EXAMINATION: VITAL SIGNS: Temperature 98.6, pulse 87, respiratory rate 20, blood pressure 135/85, pulse ox 96% on room air. GENERAL: No acute distress, alert and oriented x3. Cooperative on examination. HEENT: Normocephalic, atraumatic. Eyes, pupils are equal, round, and reactive to light bilaterally. Extraocular movements are intact bilaterally. NECK: Supple. Good range of motion throughout. Throat, no evidence of erythema or exudates in the posterior pharynx. Has poor dentition PULMONARY: Clear to auscultation bilaterally. No wheezing, no rales, no rhonchi, no crackles appreciated. CARDIOVASCULAR: Positive S1 and S2. No murmurs, rubs, or gallops appreciated. ABDOMEN: Soft, nondistended, and nontender to palpation. Bowel sounds present. MUSCULOSKELETAL: Strength is 5/5 throughout. No evidence of any muscle deficits on examination. No weakness appreciated. SKIN: Intact. Warm to touch. Good cap refill. PSYCHIATRIC: Normal mood and affect. EXTREMITIES: No edema. Good range of motion throughout. LABORATORY DATA: White count 6.3, hemoglobin 14, hematocrit 41, platelets of 449,000. Chemistries reviewed, stable. Several washouts serologies are all still pending. Microbiology; several cultures are pending. IMAGING STUDIES: None. IMPRESSION: 1. Multifocal pneumonia, status post bronchoscopy with washout performed on 12/03/2019. 2. Fever with generalized weakness and fatigue. 3. Type 2 diabetes. 4. Hyperlipidemia. PLAN: At this time bronchoscopy performed on 12/03/2019. Several serologies and washout BAL pending. Repeat coronavirus was performed today early this morning. Awaiting final results on that. Continue with IV antibiotics. He was given some steroids. Pulmonary and ID are following. Lovenox for DVT prophylaxis. He is not ready for discharge at this time. MD PETAR Lopez/CHERELLEL /[id number]
[2019-12-04] MEDS: ENOXAPARIN SOD INJ 40 MG/0.4 ML SYR SC SCH (17:51)
--- NOTE | 2019-12-04 19:14 | NUR ---
Nursing report received from morning nurse. Pt no acute distress.
--- NOTE | 2019-12-04 19:35 | NUR ---
Pulmonary Medicine DATE 12/04/2019 SUBJECTIVE: feeling better eating BM RA fio2 REVIEW OF SYSTEMS: no headaches, no bleeding PHYSICAL EXAMINATION: VITAL SIGNS: vital signs noted and reviewed per the chart record. GENERAL: Appears pale. No respiratory distress, awake HEENT: Normocephalic and atraumatic. NECK: Supple. Throat midline. LUNGS: Bilateral air entry, limited. CARDIOVASCULAR: S1 and S2. No murmurs, rubs, or gallops. ABDOMEN: Soft and nontender. EXTREMITIES: No clubbing. No cyanosis. No edema. INTEGUMENT: No rash. No purpura. LABORATORY DATA: k 4.0, others per emr IMPRESSION AND PLAN: 1. Bilateral pneumonitis, atypical pneumonia pattern. Most commonly a resolving pneumonia pattern. The most probable diagnosis is still probably post COVID-19 pneumonitis (despite the negative PCR assays), although other etiologies are possible. Rule out other atypical infectious pneumonia syndromes, and noninfectious causes. 2. Syndrome of fevers, nonspecific inflammatory markers. Treat as active sepsis, active infection, rule out non-infectious etiologies. 3. Abnormal chest radiography, possible non-infectious pneumonitis. ( ?organizing pneumonia hypersensitivity pneumonitis, sarcoidosis, eosinophilic pneumonia, others) 4. Elevated LFTs, improving slowly. 5. Diabetes. 6. Microscopic hematuria. 7. Nonspecific abdominal pain. 8. Hyperlipidemia. Follow up COVID-19 antibodies Follow bronchoscopy results COVID 19 BAL negative, at least 2 weeks post syndrome onset Continue empiric antibiotics. Rx interim steroids while ruling out high grade infections Histoplasmosis CF test ordered, pending Follow up Legionella antigen. If no etiology is readily available after the above testing, consider looking for vasculitides or connective tissue diseases. HIV testing1 Thank you very much, Dr. Menendez and Dr. Chakraborty, for this consult. Please call for questions.
--- NOTE | 2019-12-04 19:58 | NUR ---
Report given to nurse receiving patient, going to room 287. Pt belongings at his side. No acute distress noted.
--- NOTE | 2019-12-04 20:00 | Progress Note ---
DATE: SUBJECTIVE: Mr. Georges is feeling better. His breathing is better. REVIEW OF SYSTEMS: HEENT: Negative. PULMONARY: Negative. CARDIAC: Negative. He remains short of breath, but overall much better. LABORATORY DATA: Reviewed. He was checked again for COVID-19, came back negative. His ABELARDO was negative. Chlamydia came back negative. PHYSICAL EXAMINATION: GENERAL: He is currently alert, oriented. VITAL SIGNS: Stable, currently afebrile. HEENT: Not icteric. NECK: Supple. CHEST: Clear. HEART: S1, S2. No murmur. ABDOMEN: Soft. IMPRESSION: 1. Status post pneumonia, clinically doing better with the prednisone 40 mg daily, could be discharged home with prednisone 20 mg p.o. daily for a few weeks. Follow up as an outpatient. Answered all his question. 2. Status post pneumonia, I think resolved by now; whether this was viral or atypical, difficult to tell. MD NICK Fernandez/RAMÓN /[id number]
[2019-12-04] MEDS ORDERED: SODIUM CHLORIDE 0.9% 250ML 250 ML ONE (21:02)
[2019-12-04] MEDS: PRAVASTATIN 20 MG TAB PO SCH (21:32)
[2019-12-04] MEDS: CEFTRIAXONE SOD 1 GRAM/0.9% SOD CHL 50ML BAG IV SCH (21:32)
[2019-12-04] MEDS: AZITHROMYCIN 250 MG TAB PO SCH (21:32)
--- NOTE | 2019-12-05 07:00 | NUR ---
received bedside report. pt is alert resting in bed, no s/s of distress. call light within reach and instructed pt to call RN for help
[2019-12-05 07:30] LABS: HIV 1&2 AB SCREEN NON-REACTIVE (NONREACTIVE)
[2019-12-05] MEDS: INSULIN REGULAR, HUMAN 100 UNIT/1 ML 3ML VIAL SQ SCH ×2 (08:00→12:30)
[2019-12-05 08:01] VITALS: BP 119/75
[2019-12-05] MEDS: ASPIRIN 325 MG TAB EC PO SCH (08:06)
[2019-12-05] MEDS: GABAPENTIN 300 MG CAP PO SCH (08:06)
[2019-12-05] MEDS: PREDNISONE 20 MG TAB PO SCH (08:06)
[2019-12-05 09:22] VITALS: BP 119/75
[2019-12-05 11:57] VITALS: BP 120/78
--- NOTE | 2019-12-05 15:12 | NUR ---
INFECTIOUS DISEASE PROGRESS NOTE DR. ROCKWELL SUBJECTIVE: Mr. Georges is feeling better. His breathing is better. REVIEW OF SYSTEMS: HEENT: Negative. PULMONARY: Negative. CARDIAC: Negative. He remains short of breath, but overall much better. 14 POINT ROS NEG UNLESS OTHERWISE DOCUMENTED LABORATORY DATA: Reviewed. He was checked again for COVID-19, came back negative. His ABELARDO was negative. Chlamydia came back negative. PHYSICAL EXAMINATION: GENERAL: He is currently alert, oriented. VITAL SIGNS: Stable, currently afebrile. HEENT: Not icteric. NECK: Supple. CHEST: Clear. HEART: S1, S2. No murmur. ABDOMEN: Soft. IMPRESSION: 1. Bilateral pneumonitis, atypical pneumonia pattern 2. Syndrome of fevers, nonspecific inflammatory markers. Treat as active sepsis, active infection, rule out non-infectious etiologies. 3. Abnormal chest radiography, possible non-infectious pneumonitis. ( ?organizing pneumonia hypersensitivity pneumonitis, sarcoidosis, eosinophilic pneumonia, others) 4. Elevated LFTs, improving slowly. 5. Diabetes. 6. Microscopic hematuria. 7. Nonspecific abdominal pain. 8. Hyperlipidemia. PLAN: Status post pneumonia, clinically doing better with the prednisone 40 mg daily could be discharged home with prednisone 20 mg p.o. daily for a few weeks. Follow up as an outpatient. Answered all his question.
[2019-12-05 16:18] VITALS: BP 127/83
--- NOTE | 2019-12-05 17:55 | NUR ---
Pulmonary Medicine DATE 12/05/2019 SUBJECTIVE: BAL cell count with lymphocytic predominance strong predominance noted long discussion with patient again d/w feels slightly better again REVIEW OF SYSTEMS: no headaches, no bleeding PHYSICAL EXAMINATION: VITAL SIGNS: vital signs noted and reviewed per the chart record. GENERAL: Appears pale. No respiratory distress, awake HEENT: Normocephalic and atraumatic. NECK: Supple. Throat midline. LUNGS: Bilateral air entry, limited. CARDIOVASCULAR: S1 and S2. No murmurs, rubs, or gallops. ABDOMEN: Soft and nontender. EXTREMITIES: No clubbing. No cyanosis. No edema. INTEGUMENT: No rash. No purpura. LABORATORY DATA: no new updates IMPRESSION AND PLAN: 1. Bilateral lymphocytic pneumonitis. Most commonly hypersensitivity pneumonia. Other etiologies are feasible-- infectious (COVID, fungal, mycobacterial, other) and non-infectious causes 2. Syndrome of fevers, nonspecific inflammatory markers. Treat as active sepsis, although seems less likely. Cannot rule out Post Covid pneumonitis. 3. Abnormal chest radiography, suspected non-infectious pneumonitis. ( suspected hypersensitivity pneumonitis. r/o sarcoidosis, OP, others) 4. Elevated LFTs, improving slowly. 5. Diabetes. 6. Microscopic hematuria. 7. Nonspecific abdominal pain. 8. Hyperlipidemia. Follow up COVID-19 antibodies Follow bronchoscopy results COVID 19 BAL negative, performed >2 weeks post syndrome onset. The BAL isnt suggestive of post COVID 19 Continue empiric antibiotics. Rx interim steroids x ?? 1 month Histoplasmosis CF test ordered, pending Follow up Legionella antigen. HIV testing negative Possible discharge soon Thank you very much, Dr. Menendez and Dr. Chakraborty, for this consult. Please call for questions.
--- NOTE | 2019-12-06 06:06 | Discharge Summary ---
FINAL DISCHARGE DIAGNOSES: 1. Bilateral lymphocytic pneumonitis, possible underlying hypersensitivity pneumonia. 2. Cough, congestion secondary to #1. 3. Type 2 diabetes. 4. Hyperlipidemia. 5. Fever secondary to number #1-resolved. CONSULTANTS: Pulmonary and Infectious Disease. PHYSICAL EXAMINATION: VITAL SIGNS: Temperature is 97.7, pulse 72, respiratory rate 16, blood pressure is 127/83, pulse ox is 93%. He was on room air. LABORATORY DATA: Show white count 6.3, hemoglobin 14, hematocrit 41, platelets of 449. Coagulation PT 12, INR 0.88, PTT 31. Chemistry; sodium 135, potassium 4, chloride 104, bicarb 20, anion gap 15, BUN 14 and creatinine is 0.73, calcium is 8.6, glucose 189, ferritin level 1082, total bilirubin is 0.4, AST 40, ALT 53, alkaline phosphatase 82. Troponins were all negative. BNP less than 10. Albumin 3.9. Lipase was negative. Urinalysis; 6-10 rbc's, 6-10 wbc's, 1+ protein. BAL shows slightly cloudy effusion. WBC 109, RBC 459. Immunology; ABELARDO negative, c-ANCA, p-ANCA, atypical p-ANCA is pending. Serologies, toxoplasmosis, viral panel was all pending. Flu was negative. Mycoplasma was negative. Chlamydia trachomatis and PCR pending. HIV negative. Microbiology; blood cultures were negative. Throat culture negative. Gram stain, no growth today. Several BAL washout cultures are all pending. IMAGING STUDIES: CT chest multifocal pneumonia mostly in the right lower lobe correlate for viral pneumonia. CT abdomen and pelvis, interval increase in multifocal ground-glass and consolidative opacities throughout both lungs consistent with multifocal pneumonia. Diffuse hepatosteatosis and hepatomegaly. Otherwise, no acute findings in the abdomen or pelvis. Repeat CT chest, interval increase in multifocal ground-glass and consolidative opacities throughout both lung, consistent with multifocal pneumonia. Still evidence of diffuse hepatosteatosis and hepatomegaly. Chest x-ray on 12/03/2019, shows worsening of the bilateral lung infiltrates as described. HOSPITAL COURSE: A 44-year-old male, who came into the emergency room with complaints of cough, congestion, fever, myalgias, generalized weakness ongoing for the last several days prior to arrival to the hospital. The patient has been seen at multiple facilities with similar findings and has been discharged to home. Of note, is that coronavirus PCR is tested at those facilities and found to be negative. He was discharged on antibiotics. He now reports to our hospital with complaints of similar findings. The patient was admitted, in which Pulmonary and ID were consulted. While here, the patient was initially treated for a multifocal bacterial pneumonia, was on IV antibiotics. Cultures were negative. The patient's symptoms seem to not have improved, in which a repeat CT chest showed still evidence of a multifocal pneumonia. Discussed this case with ID and recommends getting a Pulmonary consultation. Pulmonary came and evaluated the patient, in which the patient underwent a bronchoscopy on 12/05/2019, with a washout. Several other serologies are pending. The patient had a coronavirus PCR tested several times while here in the hospital stay including the BAL washout, found to be negative. HIV was negative. Per Pulmonary that he likely has a bilateral lymphocytic pneumonitis, likely hypersensitivity pneumonia. The patient was started on IV steroids and then converted to oral steroids. The patient's symptoms improved after the steroids. He began to breathe much better and had no other complaints. The BAL was predominantly lymphocytic in cell count. After discussing this case with ID and Pulmonary, they agreed to discharge the patient to home. The patient was discharged on prednisone 20 mg daily for 3 weeks as per ID recommendations. The patient's anti-diabetic medications were adjusted accordingly, in which I added an additional Januvia due to concerns of worsening hypoglycemia while on steroids. The patient has a meter at home and I advised him to please check his sugars at home. Since the patient was discharged for home, several other serologies are pending, which will take several days. The patient was anxious to being discharged to home. The patient will follow up with the Infectious Disease doctor and the magazine supervisor in 7 to 10 days. I discussed the plan of care with the patient and his at bedside with the nurse present throughout the entire conversation and the patient verbalized understanding. On discharge, the patient was doing well back to baseline and he was stable. On the day of discharge, vital signs were stable, labs reviewed and stable. The patient is seen and evaluated and examined thoroughly on the day of discharge. No other complaints. The patient verbalized understanding and agrees to plan of care to follow up as an outpatient with the PCP in 1 week and Pulmonary and ID in about 7-10 days for further management and care and follow up on the results of his BAL and further viral panel results. MEDICATIONS: See med reconciliation form. DISPOSITION: Home. CONDITION: Stable. DIET: Heart healthy. In the event of worsening symptoms, the patient was advised to come back to the ED for further evaluation. Discharge summary took greater than 35 minutes. MD PETAR Lopez/RAMÓN /[id number]
== END 2019-12-05 17:21 | disposition home or self-care (01) | DRG 871 ==
LOC: ER 14:04 → ERHOLD 21:45 → MED/SURG3 11-28 16:34 → OBSVTOIN 11-29 09:11 → IMCU 12-03 19:24 → MED/SURG3 12-04 19:58
PROVIDERS: ADMIT Internal Medicine; ATTEND Internal Medicine
PROC: 0BD78ZX Extraction of Left Main Bronchus, Via Natural or Artificial Opening Endoscopic, Diagnostic (ICD-10-PCS; 2019-12-03)
PROC: 0BD38ZX Extraction of Right Main Bronchus, Via Natural or Artificial Opening Endoscopic, Diagnostic (ICD-10-PCS; 2019-12-03)
PROC: 0BBF8ZZ Excision of Right Lower Lung Lobe, Via Natural or Artificial Opening Endoscopic (ICD-10-PCS; 2019-12-03)
PROC: 0B9F8ZX Drainage of Right Lower Lung Lobe, Via Natural or Artificial Opening Endoscopic, Diagnostic (ICD-10-PCS; principal; 2019-12-03 09:30)
DX: A41.9 Sepsis, unspecified organism (principal); J12.9 Viral pneumonia, unspecified; E78.5 Hyperlipidemia, unspecified; R16.0 Hepatomegaly, not elsewhere classified; K76.0 Fatty (change of) liver, not elsewhere classified; R50.9 Fever, unspecified; Z03.818 Encounter for observation for suspected exposure to other biological agents ruled out; E11.649 Type 2 diabetes mellitus with hypoglycemia without coma; R31.29 Other microscopic hematuria; E66.9 Obesity, unspecified; Z68.30 Body mass index [BMI] 30.0-30.9, adult
CPT/HCPCS: 31622; 36415; 71045; 71260; 74177; 80048; 80053; 80076; 81001; 82550; 82553; 82728; 82948; 83518; 83605; 83615; 83690; 83880; 84484; 85025; 85379; 85610; 85730; 86021; 86039; 86140; 86332; 86631; 86644; 86645; 86663; 86664; 86665; 86738; 86777; 86778; 87040; 87070; 87102; 87116; 87205; 87206; 87390; 87400; 87449; 87633; 87635; 88305; 89051; 93005; 96361; 96372; 99285; G0378; G0433; G0435; J0171; J0330; J0456; J0696; J1100; J1650; J1817; J2001; J2405; J2930; J7030; J7050; J7512; Q9967

== ENCOUNTER 2022-05-09 08:20 | Emergency (ER) | payer SELFPAY ==
[~2022-05-09] VITALS: Ht 172.7 cm; Wt 89.8 kg
[~2022-05-09 08:20] MED LIST changes: +GABAPENTIN300 MG PO; +GLIMEPIRIDE2 MG PO
[2022-05-09] MEDS ORDERED: ONDANSETRON HCL INJ 2MG/ML 2ML 2 MG/ML VIAL IV STA (08:45)
[2022-05-09] MEDS ORDERED: KETOROLAC TROMETHAMINE 30 MG/ML VIAL IV STA (08:45)
[2022-05-09] MEDS ORDERED: SODIUM CHLORIDE 0.9% 1000ML 1,000 ML IV STA (08:45)
[2022-05-09 09:03] LABS: BASOPHILS % 0.3 % (0.0-1.0); EOSINOPHILS # (AUTO) 0.1 (0.0-0.4); EOSINOPHILS % 0.9 % (0.0-6.0); HEMATOCRIT 50.7 % (38.2-49.6); HEMOGLOBIN 16.4 g/dL (14.0-18.0); LYMPHOCYTES # (AUTO) 0.7 (1.0-3.2); LYMPHOCYTES % 11.3 % (18.0-39.1); MEAN CORPUSCULAR HEMOGLOBIN 31.1 pg (28-32); MEAN CORPUSCULAR HGB CONC 32.3 g/dL (31-35); MEAN CORPUSCULAR VOLUME 96.2 fL (81-99); MONOCYTES # (AUTO) 0.4 (0.2-0.8); MONOCYTES % 6.6 % (4.4-11.3); NEUTROPHILS # (AUTO) 5.2 (2.1-6.9); NEUTROPHILS % 80.7 % (38.7-80.0); PLATELET COUNT 207 x10e3/uL (140-360); RED BLOOD COUNT 5.27 x10e6/uL (4.3-5.7); RED CELL DISTRIBUTION WIDTH 13.6 % (11.7-14.4)
[2022-05-09] MEDS ORDERED: DIATRIZOATE MEGL/DIATRIZOA SOD 30 ML BTL PO ONE (09:13)
[2022-05-09 09:18] LABS: COLOR,URINE YELLOW (YELLOW); KETONES,URINE 2+ (NEGATIVE); LEUKOCYTE ESTERASE ,URINE NEGATIVE (NEGATIVE); NITRITE,URINE NEGATIVE (NEGATIVE); PROTEIN,URINE DIPSTICK NEGATIVE (NEGATIVE); URINE UROBILINOGEN 0.2 mg/dL (0.2 - 1)
[2022-05-09 09:19] LABS: BACTERIA,URINE FEW /HPF; EPITHELIAL CELLS,URINE FEW /LPF; RBC,URINE 0-5 /HPF (0-5); WBC,URINE (MAN) 21-50 /HPF (0-5)
[2022-05-09 09:20] LABS: CLARITY,URINE CLOUDY (CLEAR)
[2022-05-09 09:33] LABS: PARTIAL THROMBOPLASTIN TIME 20.8 seconds (23.8-35.5)
[2022-05-09 09:36] LABS: INR 0.94; PROTHROMBIN TIME 13.4 seconds (11.9-14.5)
[2022-05-09 09:40] LABS: ALANINE AMINOTRANSFERASE 28 IU/L (0-55); ALBUMIN 3.8 g/dL (3.5-5.0); ALBUMIN/GLOBULIN RATIO 1.2 (0.8-2.0); ALKALINE PHOSPHATASE 84 IU/L (40-150); ANION GAP 16.1 mmol/L (8-16); BLOOD UREA NITROGEN 15 mg/dL (7-26); BUN/CREATININE RATIO 20 (6-25); CALCIUM 8.1 mg/dL (8.4-10.2); CARBON DIOXIDE 22 mmol/L (22-29); CHLORIDE 102 mmol/L (98-107); CREATINE KINASE 55 IU/L (30-200); CREATININE, SERUM 0.75 mg/dL (0.72-1.25); GLUCOSE 248 mg/dL (74-118); MAGNESIUM 1.7 MG/DL (1.3-2.1); POTASSIUM 4.1 mmol/L (3.5-5.1); SODIUM 136 mmol/L (136-145)
[2022-05-09 09:41] LABS: LIPASE < 4 U/L (8-78)
[2022-05-09] MEDS ORDERED: IOPAMIDOL 370 MG/ML 100 ML INFUS..BTL INJ ONE (10:05)
[2022-05-09] MEDS ORDERED: DICYCLOMINE HCL20 MG PO (11:47)
[2022-05-09] MEDS ORDERED: CEFUROXIME500 MG PO (11:47)
[2022-05-09] MEDS ORDERED: PYRIDIUM100 MG PO (11:47)
== END 2022-05-09 12:20 | disposition home or self-care (01) ==
LOC: ER 08:42
DX: R10.32 Left lower quadrant pain (principal); N39.0 Urinary tract infection, site not specified; R51.9 Headache, unspecified; E11.65 Type 2 diabetes mellitus with hyperglycemia; Z20.822 Contact with and (suspected) exposure to COVID-19; Z87.19 Personal history of other diseases of the digestive system
CPT/HCPCS: 36415; 74177; 80053; 81001; 82550; 82553; 83690; 83735; 84484; 85025; 85610; 85730; 87086; 87400; 99284; J1885; J2405; J7030; Q9963; Q9967; U0002